=== PATIENT | male | born 1965 | race Caucasian/White ===

== ENCOUNTER 2018-05-27 15:16 | Inpatient (IN) ==
[2018-05-27 15:59] LABS: Basophils % 0.3 % (0.1-2.0); Eosinophils # 0.1 K/mm3 (0.0-0.4); Eosinophils % 1.8 % (0.1-12.0); Hematocrit 51.5 % (42.0-52.0); Hemoglobin 16.2 g/dL (14.1-18.0); Lymphocytes # 2.6 K/mm3 (0.7-4.5); Lymphocytes % 33.9 K/mm3 (10-50); Mean Corpuscular HGB Conc 31.5 g/dL (31.8-35.4); Mean Corpuscular Hemoglobin 29.1 pg (27.0-31.2); Mean Corpuscular Volume 92.5 fl (80-94); Mean Platelet Volume 8.5 fl (7.4-10.4); Monocytes # 0.5 K/mm3 (0.1-1.0); Monocytes % 7.1 % (1.7-9.3); Neutrophils # 4.3 K/mm3 (1.8-7.8); Neutrophils % 56.8 % (37.0-80.0); Platelet Count 246 K/mm3 (142-424); Red Blood Count 5.57 M/mm3 (4.60-6.20); Red Cell Distribution Width 14.9 % (11.5-17.5); White Blood Count 7.6 K/mm3 (4.8-10.8)
[2018-05-27 16:10] LABS: Albumin Level 3.9 gm/dL (3.4-5.0); Albumin/Globulin Ratio 0.9 (1.1-1.8); Anion Gap 9.1 mEq/L (5-15); Bilirubin,Total 0.4 mg/dL (0.2-1.0); Calcium 8.7 mg/dL (8.5-10.1); Globulin 4.2 gm/dl (1.3-3.2); Total Protein,Serum 8.1 gm/dL (6.4-8.2)
--- NOTE | 2018-05-27 16:12 | Emergency Department Note ---
ED Disposition Clinical Impression: Diverticulitis, Gallstones Disposition: Admitted As Inpatient Condition on Discharge: Fair Additional Instructions: Admitted to Dr. Yeboah for IV Levaquin and IV Flagyl Referrals: Gina Crockett [Primary Care Provider] - Time of Disposition: 20:51 - Critical Care Critical Care Time: No Attestation: On 05/27/18, the high probability of a clinically significant, sudden or life threatening deterioration of the following system(s) required my full and direct attention, intervention and personal management. The time I documented below is in addition to time spent performing reported procedures but includes the following listed in this critical care notation. Medical Decision Making - Medical Records Medical records reviewed: Yes: I reviewed the patient's medical records. - Sd Inquiry Pt receiving controlled substance: Yes Sd was queried for this patient: No Reason not queried -: Emergent pt cond-no time Risks and benefits of using a controlled substance: were discussed with pt by me Vital Signs: 05/27/18 15:28 05/27/18 15:51 05/27/18 17:46 Temperature 98.0 F 98.4 F 98.2 F Temperature Source Temporal Artery Scan Oral Oral Pulse Rate [Right Radial] 67 72 73 Respiratory Rate 20 20 18 Blood Pressure [Right Arm] 170/100 168/108 152/109 Blood Pressure Mean [Right Arm] 123 128 123 Blood Pressure Source [Right Arm] Automatic Cuff Automatic Cuff Automatic Cuff Blood Pressure Position [Right Arm] Sitting Supine Supine 02 Sat by Pulse Oximetry 97 97 96 Oxygen Delivery Method Room Air Room Air Room Air - Lab Data Lab results reviewed: Yes: I reviewed the patient's lab results. Lab Results 05/27/18 15:50: WBC 7.6, RBC 5.57, Hgb 16.2, Hct 51.5, MCV 92.5, MCH 29.1, MCHC 31.5 L, RDW 14.9, Plt Count 246, MPV 8.5, Neut % (Auto) 56.8, Lymph % (Auto) 33.9, [place] % (Auto) 7.1, Eos % (Auto) 1.8, Baso % (Auto) 0.3, Neut # (Auto) 4.3 , Lymph # (Auto) 2.6, [place] # (Auto) 0.5, Eos # (Auto) 0.1, Baso # (Auto) 0.0 05/27/18 15:50: Sodium 138, Potassium 4.1, Chloride 106, Carbon Dioxide 27, Anion Gap 9.1, BUN 11, Creatinine 0.91, Estimated Creat Clear 105, Estimated GFR 88, Est GFR ( Amer) 107, Glucose 113 H, Calcium 8.7, Total Bilirubin 0.4, AST 59 H, ALT 85 H, Alkaline Phosphatase 83, Total Protein 8.1, Albumin 3.9 , Globulin 4.2 H, Albumin/Globulin Ratio 0.9 L, Amylase 79, Lipase 159 05/27/18 17:30: Urine Color Yellow, Urine Appearance Clear, Urine pH 7.5, Ur Specific [place] 1.020, Urine Protein Negative, Urine Glucose (UA) Negative, Urine Ketones Negative, Urine Blood Negative, Urine Nitrate Negative, Urine Bilirubin Negative, Urine Urobilinogen 0.2, Ur Leukocyte Esterase Negative, Urine RBC None, Urine WBC None, Ur Squamous Epith Cells None, Urine Bacteria Trace Result diagrams: 05/27/18 15:50 05/27/18 15:50 Orders (Tests/Meds): ED MEDICATIONS Discontinued Medications Generic Name Dose Route Start Last Admin Trade Name Freq PRN Reason Stop Dose Admin Diatrizoate Meglum/Diatrizoate Sod 30 ml 05/27/18 18:17 05/27/18 18:28 Gastrografin 66%-10% 30ml PO 05/27/18 18:18 30 ml ONCE ONE Administration Diphenhydramine HCl 25 mg 05/27/18 18:16 05/27/18 18:28 Benadryl 50mg/1ml Vial IV 05/27/18 18:17 25 mg ONCE ONE Administration Iopamidol 75 ml 05/27/18 20:11 05/27/18 20:11 [id number]; 75ml Vial IV 05/27/18 20:12 75 ml ONCE ONE Administration Morphine Sulfate 4 mg 05/27/18 17:47 05/27/18 17:58 Morphine 4mg/Ml Syringe IV 05/27/18 17:48 4 mg ONCE ONE Administration Ondansetron HCl 4 mg 05/27/18 17:47 05/27/18 17:58 Zofran 4mg/2ml Vial IV 05/27/18 17:48 4 mg ONCE ONE Administration Sodium Chloride 10 ml 05/27/18 20:11 05/27/18 20:11 Rad-Saline Flush 10ml Syringe IV 05/27/18 20:12 10 ml ONCE ONE Administration ORDERS Category Date Time Status CT abdomen pelvis w con Stat Cat Scan 05/27/18 19:21 Taken Diarrhea Panel, PCR Stat Lab 05/27/18 16:15 Ordered - CT Data CT Scan: Abdomen, Pelvis Time Received: 20:[address] Reviewed: Yes: I have reviewed the patient's CT results, I discussed the CT results w/the radiologist, I have viewed the radiologist's interpretation Findings Narrative: Acute Diverticulitis and Cholelithiasis Abdominal Pain HPI - General Chief Complaint: Abdominal Pain Stated Complaint: abd pain Time Seen by Provider: 05/27/18 16:09 Mode of Arrival: Family Vehicle Source of Information: Patient Limitations: No Limitations Description of Symptoms (Recalled from ER Triage Doc. by RN): C/O C/O LOWER ABDOMINAL PAIN FOR 4 DAYS WITH NAUSEA AND DIARRHEA, HX DIVERTICULITIS - History of Present Illness HPI narrative: Lower abd pain for the past 4 days. History of Diverticulitis in past but no surgeries of anykind. Nausea, vomiting and had a loose BM this morning MD complaint: abdominal pain Onset (ago): day(s) Location: LLQ, suprapubic Severity: moderate - Related Data Home Medications Medication Instructions Recorded Confirmed Meclizine HCl [Meclizine 12.5mg 12.5 mg PO DAILY 05/27/18 05/27/18 Tab] Allergies Allergy/AdvReac Type Severity Reaction Status Date / Time iodine [IODINE] Allergy Intermediate I-RASH Verified 05/27/18 15:32 promethazine [From PHENERGAN] Allergy Mild NA-HALLUCIN Verified 05/27/18 15:32 ATIONS [facility] History I have reviewed the patient's past medical history: Yes Medical History: Denies:: Cancer, Diabetes Mellitus Type 1, Diabetes Mellitus Type 2, MRSA Amputation: No Fractures: No - Social History Smoking Status: Current every day smoker Tobacco Type: cigarettes Alcohol Intake: current Alcohol Intake Frequency:: a few times a week - Psychiatric History Expresses thoughts of harming self/others: None Suicide Plan Description: No Plan ROS Obtained: Yes All systems reviewed & no additional complaints - Constitutional Constitutional: Reports system reviewed and no additional complaints, except as docu - Eyes Eyes: Reports system reviewed and no additional complaints, except as docu - Gastrointestinal Gastrointestingal: Reports: system reviewed and no additional complaints, except as docu, as per HPI Physical Exam - General General appearance: alert, in no apparent distress (but does complain of some lower abd pain) - Head Head exam: atraumatic - Eye Eye exam: Present: normal appearance - ENT ENT exam: Present: normal exam - Respiratory Respiratory exam: Present: normal lung sounds bilaterally, respiratory distress - Cardiovascular Cardiovascular exam: Present: regular rate, normal rhythm - Abdominal Exam Abdominal exam: Present: tenderness (in suprapubic area) Abdominal tenderness: Present: suprapubic - Extremities Exam Extremities exam: Present: normal inspection - Back Exam Back exam: Present: normal inspection - Neurological Exam Neurological exam: Present: alert, oriented X3
[2018-05-27 16:14] LABS: Potassium 4.1 mmoL/L (3.5-5.1)
[2018-05-27 17:37] LABS: Microscopic, Urine URINE MICROSCOPIC (MICROSCOPIC)
[2018-05-27 17:39] LABS: Appearance,Urine CLEAR (Clear); Bilirubin,Urine Negative (Negative); Blood, Urine Negative (Negative); Color,Urine YELLOW (Yellow); Glucose,Urine (UA) Negative (Negative); Ketones,Urine Negative (Negative); Leukocyte Esterase,Urine Negative (Negative); PH,Urine 7.5 (5.0-8.5); Protein,Urine Negative (Negative); Urobilinogen,Urine 0.2 EU/dl (0.2)
[2018-05-27 17:53] LABS: Bacteria,Urine Trace /lpf
[2018-05-28 06:42] LABS: Basophils % 0.7 % (0.1-2.0); Eosinophils # 0.1 K/mm3 (0.0-0.4); Eosinophils % 2.1 % (0.1-12.0); Hematocrit 48.7 % (42.0-52.0); Hemoglobin 15.2 g/dL (14.1-18.0); Lymphocytes # 1.9 K/mm3 (0.7-4.5); Lymphocytes % 41.2 K/mm3 (10-50); Mean Corpuscular HGB Conc 31.1 g/dL (31.8-35.4); Mean Corpuscular Volume 93.3 fl (80-94); Mean Platelet Volume 8.6 fl (7.4-10.4); Monocytes # 0.4 K/mm3 (0.1-1.0); Monocytes % 9.3 % (1.7-9.3); Neutrophils # 2.2 K/mm3 (1.8-7.8); Neutrophils % 46.7 % (37.0-80.0); Platelet Count 205 K/mm3 (142-424); Red Blood Count 5.22 M/mm3 (4.60-6.20); Red Cell Distribution Width 14.9 % (11.5-17.5); White Blood Count 4.6 K/mm3 (4.8-10.8)
[2018-05-28 06:52] LABS: Albumin Level 3.2 gm/dL (3.4-5.0); Albumin/Globulin Ratio 0.9 (1.1-1.8); Anion Gap 8.3 mEq/L (5-15); Bilirubin,Total 0.5 mg/dL (0.2-1.0); Calcium 8.3 mg/dL (8.5-10.1); Globulin 3.7 gm/dl (1.3-3.2); Potassium 4.3 mmoL/L (3.5-5.1); Total Protein,Serum 6.9 gm/dL (6.4-8.2)
--- NOTE | 2018-05-28 08:37 | History & Physical Report ---
*Admission Date: 05/27/18 <Elaine Farias 05/28/18 08:41> *Chief complaint: abdominal pain, nausea, vomiting <Elaine Farias 05/28/18 08:41> *History of present illness: Mr. Blankenship is a 52-year-old male patient of Dr. Almonte. He states for the past 10-15 years he has had numerous episodes of diverticulitis. Approximately 4-5 days ago he began having cramping in his lower abdomen. He then began having nausea vomiting and diarrhea which is why he presented to the emergency room. He was found to have both diverticulitis and gallstones and was admitted for antibiotics and further evaluation and treatment. At this time he is feeling much better after receiving some antibiotics. His vomiting has resolved. <Elaine Farias 05/28/18 08:41> [facility] History Medical History: Reports:: Hypertension, MRSA Denies:: Cancer, Diabetes Mellitus Type 1, Diabetes Mellitus Type 2, Internal Pacemaker <Elaine Farias 05/28/18 08:41> Comment: Diverticulitis <Elaine Farias 05/28/18 08:41> Other Surgeries: Yes: Colonoscopy. No: Pacemaker <Elaine Farias 05/28/18 08 :41> Amputation: No <Elaine Farias 05/28/18 08:41> Fractures: No <Elaine Farias 05/28/18 08:41> - *Social History Educational Level: Completed GED/General Educational Development <Elaine Farias 05/28/18 08:41> Smoking Status: Current every day smoker <Elaine Farias 05/28/18 08:41> Tobacco Type: cigarettes <Elaine Farias 05/28/18 08:41> # Packs/Day (cigarettes): 1 <Elaine Farias 05/28/18 08:41> Alcohol Intake: never <Elaine Farias 05/28/18 08:41> Alcohol Intake Frequency:: a few times a week <Elaine Farias 05/28/18 08:41> Substance Use Type: marijuana <Elaine Farias 05/28/18 08:41> Last Used Substance: days (ago) <Elaine Farias 05/28/18 08:41> Occupational Status: unemployed <RemikikeElaine 05/28/18 08:41> Housing: house <RemikikeElaine 05/28/18 08:41> Household Members: none <JarrettElaine 05/28/18 08:41> - Psychiatric History Expresses thoughts of harming self/others: None <JarrettElaine 05/28/18 08: 41> Suicide Plan Description: No Plan <JarrettElaine 05/28/18 08:41> *Family Hx:: Cancer, Hyperlipidemia, Hypertension <JarrettElaine 05/28/18 08 :41> Review of Systems - Constitutional Reports weakness, Denies fever(s) <Elaine Farias 05/28/18 08:41> - Eyes Denies blurry vision, Denies double vision <JarrettElaine 05/28/18 08:41> - ENT Reports sore throat, Denies nasal congestion <Elaine Farias 05/28/18 08:41> - *Cardiovascular Denies chest pain, Denies shortness of breath <JarrettElaine 05/28/18 08:41> - *Respiratory Denies cough, Denies shortness of breath <JarrettElaine 05/28/18 08:41> - *Gastrointestinal Reports abdominal pain (lower abdomen), Reports loose stools, Reports nausea, Reports vomiting <JarrettElaine 05/28/18 08:41> - *Genitourinary Denies difficulty urinating, Denies painful urination <Elaine Farias 08:41> - *Musculoskeletal Reports joint pain (right shoulder) <JarrettElaine 05/28/18 08:41> - *Neurologic Reports headache(s), Denies dizziness <Arsh Fariasa 05/28/18 08:41> Meds Home Medications Medication Instructions Recorded Confirmed Type No Known Home Medications 05/28/18 05/28/18 History <Gorge Yeboah - 05/28/18 09:09> Allergies Allergy/AdvReac Type Severity Reaction Status Date / Time iodine [IODINE] Allergy Intermediate I-RASH Verified 05/27/18 15:32 promethazine [From PHENERGAN] Allergy Mild NA-HALLUCIN Verified 05/27/18 15:32 ATIONS <Gorge Yeboah - 05/28/18 09:09> Exam Vital signs and Labs for Last 24 Hours: Temp Pulse Resp BP Pulse Ox 98.1 F 63 18 163/99 97 05/28/18 08:00 05/28/18 08:00 05/28/18 08:00 05/28/18 08:00 05/28/18 08:00 Laboratory Results - last 24 hr 05/27/18 15:50: WBC 7.6, RBC 5.57, Hgb 16.2, Hct 51.5, MCV 92.5, MCH 29.1, MCHC 31.5 L, RDW 14.9, Plt Count 246, MPV 8.5, Neut % (Auto) 56.8, Lymph % (Auto) 33.9, [place] % (Auto) 7.1, Eos % (Auto) 1.8, Baso % (Auto) 0.3, Neut # (Auto) 4.3 , Lymph # (Auto) 2.6, [place] # (Auto) 0.5, Eos # (Auto) 0.1, Baso # (Auto) 0.0 05/27/18 15:50: Sodium 138, Potassium 4.1, Chloride 106, Carbon Dioxide 27, Anion Gap 9.1, BUN 11, Creatinine 0.91, Estimated Creat Clear 105, Estimated GFR 88, Est GFR ( Amer) 107, Glucose 113 H, Calcium 8.7, Total Bilirubin 0.4, AST 59 H, ALT 85 H, Alkaline Phosphatase 83, Total Protein 8.1, Albumin 3.9 , Globulin 4.2 H, Albumin/Globulin Ratio 0.9 L, Amylase 79, Lipase 159 05/27/18 17:30: Urine Color Yellow, Urine Appearance Clear, Urine pH 7.5, Ur Specific [place] 1.020, Urine Protein Negative, Urine Glucose (UA) Negative, Urine Ketones Negative, Urine Blood Negative, Urine Nitrate Negative, Urine Bilirubin Negative, Urine Urobilinogen 0.2, Ur Leukocyte Esterase Negative, Urine RBC None, Urine WBC None, Ur Squamous Epith Cells None, Urine Bacteria Trace 05/28/18 04:45: Stl Aeromonas (PCR) Not detected, Stl C. cayetanensis PCR Not detected, Stool Rotavirus (PCR) Not detected, Stl Adenov F 40/41 PCR Not detected, Stool Astrovirus (PCR) Not detected, Stool Campylobacter PCR Not detected, Stl C.difficile Tox PCR Detected A, Stool Cryptosporidium PCR Not detected, Stl E.coli Shiga Tox PCR Not detected, Stool E coli O157 PCR Not detected, Stl Enterotoxigenic E PCR Not detected, Stool EPEC (PCR) Not detected , Stool EAEC (PCR) Not detected, Stl E. histolytica PCR Not detected, Stool Giardia Lamblia PCR Not detected, Stool Salmonella PCR Not detected, Stool Sapovirus (PCR) Not detected, Stl P. shigelloides PCR Not detected, Stl Shigella /EIEC PCR Not detected, St Y.enterocolitica PCR Not detected, Stool Vibrio (PCR ) Not detected, Stl Vibrio cholerae PCR Not detected, Stl Norovirus GI/GII PCR Not detected 05/28/18 06:11: WBC 4.6 L D, RBC 5.22, Hgb 15.2, Hct 48.7, MCV 93.3, MCH 29.0, MCHC 31.1 L, RDW 14.9, Plt Count 205, MPV 8.6, Neut % (Auto) 46.7, Lymph % (Auto ) 41.2, [place] % (Auto) 9.3, Eos % (Auto) 2.1, Baso % (Auto) 0.7, Neut # (Auto) 2.2, Lymph # (Auto) 1.9, [place] # (Auto) 0.4, Eos # (Auto) 0.1, Baso # (Auto) 0.0 05/28/18 06:11: Sodium 140, Potassium 4.3, Chloride 107, Carbon Dioxide 29, Anion Gap 8.3, BUN 8 D, Creatinine 0.97, Estimated Creat Clear 111, Estimated GFR 82, Est GFR ( Amer) 99, Glucose 99, Calcium 8.3 L, Total Bilirubin 0.5, AST 48 H, ALT 73, Alkaline Phosphatase 75, Total Protein 6.9, Albumin 3.2 L D, Globulin 3.7 H, Albumin/Globulin Ratio 0.9 L <Gorge Yeboah - 05/28/18 09:09> Temp Pulse Resp BP Pulse Ox 98.1 F 63 18 163/99 97 05/28/18 08:00 05/28/18 08:00 05/28/18 08:00 05/28/18 08:00 05/28/18 08:00 Laboratory Results - last 24 hr 05/27/18 15:50: WBC 7.6, RBC 5.57, Hgb 16.2, Hct 51.5, MCV 92.5, MCH 29.1, MCHC 31.5 L, RDW 14.9, Plt Count 246, MPV 8.5, Neut % (Auto) 56.8, Lymph % (Auto) 33.9, [place] % (Auto) 7.1, Eos % (Auto) 1.8, Baso % (Auto) 0.3, Neut # (Auto) 4.3 , Lymph # (Auto) 2.6, [place] # (Auto) 0.5, Eos # (Auto) 0.1, Baso # (Auto) 0.0 05/27/18 15:50: Sodium 138, Potassium 4.1, Chloride 106, Carbon Dioxide 27, Anion Gap 9.1, BUN 11, Creatinine 0.91, Estimated Creat Clear 105, Estimated GFR 88, Est GFR ( Amer) 107, Glucose 113 H, Calcium 8.7, Total Bilirubin 0.4, AST 59 H, ALT 85 H, Alkaline Phosphatase 83, Total Protein 8.1, Albumin 3.9 , Globulin 4.2 H, Albumin/Globulin Ratio 0.9 L, Amylase 79, Lipase 159 05/27/18 17:30: Urine Color Yellow, Urine Appearance Clear, Urine pH 7.5, Ur Specific [place] 1.020, Urine Protein Negative, Urine Glucose (UA) Negative, Urine Ketones Negative, Urine Blood Negative, Urine Nitrate Negative, Urine Bilirubin Negative, Urine Urobilinogen 0.2, Ur Leukocyte Esterase Negative, Urine RBC None, Urine WBC None, Ur Squamous Epith Cells None, Urine Bacteria Trace 05/28/18 04:45: Stl Aeromonas (PCR) Not detected, Stl C. cayetanensis PCR Not detected, Stool Rotavirus (PCR) Not detected, Stl Adenov F 40/41 PCR Not detected, Stool Astrovirus (PCR) Not detected, Stool Campylobacter PCR Not detected, Stl C.difficile Tox PCR Detected A, Stool Cryptosporidium PCR Not detected, Stl E.coli Shiga Tox PCR Not detected, Stool E coli O157 PCR Not detected, Stl Enterotoxigenic E PCR Not detected, Stool EPEC (PCR) Not detected , Stool EAEC (PCR) Not detected, Stl E. histolytica PCR Not detected, Stool Giardia Lamblia PCR Not detected, Stool Salmonella PCR Not detected, Stool Sapovirus (PCR) Not detected, Stl P. shigelloides PCR Not detected, Stl Shigella /EIEC PCR Not detected, St Y.enterocolitica PCR Not detected, Stool Vibrio (PCR ) Not detected, Stl Vibrio cholerae PCR Not detected, Stl Norovirus GI/GII PCR Not detected 05/28/18 06:11: WBC 4.6 L D, RBC 5.22, Hgb 15.2, Hct 48.7, MCV 93.3, MCH 29.0, MCHC 31.1 L, RDW 14.9, Plt Count 205, MPV 8.6, Neut % (Auto) 46.7, Lymph % (Auto ) 41.2, [place] % (Auto) 9.3, Eos % (Auto) 2.1, Baso % (Auto) 0.7, Neut # (Auto) 2.2, Lymph # (Auto) 1.9, [place] # (Auto) 0.4, Eos # (Auto) 0.1, Baso # (Auto) 0.0 05/28/18 06:11: Sodium 140, Potassium 4.3, Chloride 107, Carbon Dioxide 29, Anion Gap 8.3, BUN 8 D, Creatinine 0.97, Estimated Creat Clear 111, Estimated GFR 82, Est GFR ( Amer) 99, Glucose 99, Calcium 8.3 L, Total Bilirubin 0.5, AST 48 H, ALT 73, Alkaline Phosphatase 75, Total Protein 6.9, Albumin 3.2 L D, Globulin 3.7 H, Albumin/Globulin Ratio 0.9 L <Elaine Farias - 05/28/18 08:41> I & O for Last 24 hours: Intake & Output 05/25/18 05/26/18 05/27/18 05/28/18 11:59 11:59 11:59 11:59 Intake Total 894 / 894 Output Total 500 / 500 Balance 394 / 394 Weight 192 lb 3 oz <LettsGorge - 05/28/18 09:09> Intake & Output 05/25/18 05/26/18 05/27/18 05/28/18 11:59 11:59 11:59 11:59 Intake Total 894 / 894 Output Total 500 / 500 Balance 394 / 394 Weight 192 lb 3 oz <Elaine Farias 05/28/18 08:41> - Constitutional no acute distress [facility] 08[facility]> - *Routine HEENT Exam Head: Present: normocephalic, atraumatic <[facility] 05/28/18 08:41> Eye: Present: EOMI, PERRL <[facility] 05/28/18 08:41> ENT: Present: mucous membranes moist <[facility] 05/28/18 08:41> - *Routine Neck Exam Present: supple, full ROM <[facility] 05/28/18 08:41> - *Routine Respiratory Exam Present: CTA bilaterally [facility] 05/28/18 08:41> - *Routine Cardiovascular Exam Present: RRR <[facility] 05/28/18 08:41> - *Routine Abdominal Exam Present: soft, normoactive bowel sounds, tenderness (lower abdomen). Absent: distended <[facility] 05/28/18 08:41> - *Routine Extremities Exam Absent: edema [facility] 05/28/18 08:41> - *Routine Skin Exam Present: intact [facility] 05/28/18 08:41> - *Routine Neurological Exam Present: alert, oriented X3 <[facility] 05/28/18 08:41> H&P: Result - Labs Labs: Short CBC 05/27/18 05/28/18 Range/Units 15:50 06:11 WBC 7.6 4.6 L D (4.8-10.8) K/mm3 Hgb 16.2 15.2 (14.1-18.0) g/dL Hct 51.5 48.7 (42.0-52.0) % Plt Count 246 205 (142-424) K/mm3 BMP 05/27/18 05/28/18 15:50 06:11 Sodium 138 140 Potassium 4.1 4.3 Chloride 106 107 Carbon Dioxide 27 29 BUN 11 8 D Creatinine 0.91 0.97 Glucose 113 H 99 Calcium 8.7 8.3 L Liver Function 05/27/18 05/28/18 Range/Units 15:50 06:11 Total Bilirubin 0.4 0.5 (0.2-1.0) mg/dL AST 59 H 48 H (15-37) U/L ALT 85 H 73 (12-78) U/L Alkaline Phosphatase 83 75 (46-116) U/L Albumin 3.9 3.2 L D (3.4-5.0) gm/dL Urine 05/27/18 Range/Units 17:30 Urine Color Yellow (Yellow) Urine Appearance Clear (Clear) Urine pH 7.5 (5.0-8.5) Ur Specific [place] 1.020 (1.005-1.030) Urine Protein Negative (Negative) Urine Glucose (UA) Negative (Negative) <Gorge Yeboah - 05/28/18 09:09> <Elaine Farias - 05/28/18 08:41> - Impressions CT abdomen - 1. Cholelithiasis. The gallbladder is filled with stones 2. Diverticulosis with suspected mild diverticulitis of the sigmoid colon. 3. There appears to be focal thickening of the superior wall the urinary bladder with a few small gas bubbles in this area. Necrotic neoplasm is a consideration. Cystitis is also considered. It is also possible that this could be coming from the sigmoid colon with a small. Diverticular abscess. Suggest repeat exam with IV and oral contrast for better evaluation. 4. Celiac and portal adenopathy. Etiology indeterminate CT of abdomen with contrast 1. Diverticulitis of the sigmoid colon with possible small diverticular abscess millimeters versus an adjacent lesion of the urinary bladder with thickening of the urinary bladder wall superiorly. 2. Cholelithiasis. 3. Portal adenopathy <Elaine Farias - 05/28/18 08:41> Assessment and Plan (1) Diverticulitis Current visit: Yes Status: Acute Category: Medical Code(s): K57.92 - Diverticulitis of intestine, part unspecified, without perforation or abscess without bleeding (2) Gallstones Current visit: Yes Status: Acute Category: Medical Code(s): K80.20 - Calculus of gallbladder without cholecystitis without obstruction <Gorge Yeboah - 05/28/18 09:09> (1) Diverticulitis Current visit: Yes Status: Acute Category: Medical Code(s): K57.92 - Diverticulitis of intestine, part unspecified, without perforation or abscess without bleeding (2) Gallstones Current visit: Yes Status: Acute Category: Medical Code(s): K80.20 - Calculus of gallbladder without cholecystitis without obstruction <Elaine Farias - 05/28/18 08:33> - Assessment and plan all Dx Assessment and Plan for all problems:: Saw patient, agree with above note. Patient has improved since admission, will not consult surgery at this time. <Gorge Yeboah - 05/28/18 09:09> Patient is improving on antibiotics. CT with contrast is concerning for diverticular abscess. The patient also has gallstones. He has never had a right upper quadrant ultrasound. May need GI or surgery consult. Will discuss further care with Dr. Yeboah. <Elaine Farias - 05/28/18 08:41>
--- NOTE | 2018-05-28 10:36 | Pharmacy Consult Notes ---
[facility] Pharmacy VTE Monitoring - Patient Demographics Admission date: 05/27/18 Report Date: 05/28/18 Time: 10:36 Allergies/Adverse Reactions: Patient Allergies iodine [IODINE] Allergy (Intermediate, Verified 05/27/18 15:32) I-RASH promethazine [From PHENERGAN] Allergy (Mild, Verified 05/27/18 15:32) NA-HALLUCINATIONS Height: 1.8 m Weight: 87.175 kg Patient Problems: Current Active Problems Diverticulitis (Acute) Gallstones (Acute) - VTE Risk Labs: VTE Related Lab Results Hgb 15.2 g/dL (14.1-18.0) 05/28/18 06:11 Hct 48.7 % (42.0-52.0) 05/28/18 06:11 Plt Count 205 K/mm3 (142-424) 05/28/18 06:11 BUN 8 mg/dL (7-18) D 05/28/18 06:11 Creatinine 0.97 mg/dL (0.70-1.30) 05/28/18 06:11 Estimated Creat Clear 111 mL/min (0-300) 05/28/18 06:11 VTE Score: 3 VTE Risk Level: Low Risk - Prophylaxis VTE Prophylaxis Ordered?: Yes Types of VTE Prophylaxis: TEDS Knee High Location of Applied Device: Bilateral Lower Extremeties - VTE Diagnosis Confirmed Treatment or plan recommended: Continue Current Treatment
[2018-05-29 04:30] LABS: Basophils % 0.3 % (0.1-2.0); Eosinophils # 0.1 K/mm3 (0.0-0.4); Eosinophils % 1.4 % (0.1-12.0); Hematocrit 46.9 % (42.0-52.0); Hemoglobin 15.5 g/dL (14.1-18.0); Lymphocytes # 1.9 K/mm3 (0.7-4.5); Lymphocytes % 39.5 K/mm3 (10-50); Mean Corpuscular HGB Conc 33.1 g/dL (31.8-35.4); Mean Corpuscular Hemoglobin 30.5 pg (27.0-31.2); Mean Corpuscular Volume 92.3 fl (80-94); Mean Platelet Volume 8.3 fl (7.4-10.4); Monocytes # 0.4 K/mm3 (0.1-1.0); Monocytes % 8.9 % (1.7-9.3); Neutrophils # 2.4 K/mm3 (1.8-7.8); Neutrophils % 49.8 % (37.0-80.0); Platelet Count 185 K/mm3 (142-424); Red Blood Count 5.08 M/mm3 (4.60-6.20); Red Cell Distribution Width 14.7 % (11.5-17.5); White Blood Count 4.8 K/mm3 (4.8-10.8)
[2018-05-29 04:45] LABS: Anion Gap 6.4 mEq/L (5-15); Calcium 8.6 mg/dL (8.5-10.1); Potassium 4.4 mmoL/L (3.5-5.1)
--- NOTE | 2018-05-29 09:50 | Discharge Summary ---
General - General Admission date:: 05/27/18 Discharge date: 05/29/18 HPI HPI: Mr. Blankenship is a 52-year-old male patient of Dr. Almonte. He states for the past 10-15 years he has had numerous episodes of diverticulitis. Approximately 4-5 days ago he began having cramping in his lower abdomen. He then began having nausea vomiting and diarrhea which is why he presented to the emergency room. He was found to have both diverticulitis and gallstones and was admitted for antibiotics and further evaluation and treatment. At this time he is feeling much better after receiving some antibiotics. His vomiting has resolved. Hospital Course Hospital Course: Patient was admitted to our facility for his diverticulitis. He was started on levaquin and flagyl. His CT scan confirmed diverticulitis with possible abscess. However, patient was feeling better with antibiotics on day 2 of hospital stay. His stool culture during this visit was positive for c.difficle, which was treated with flagyl. Upon being stable on day 3, patient was discharged home with levaquin and flagyl for total of 14 days. He is to follow- up with me in 1 week as he wants to switch his care from [facility]. Objective Vital signs: Temp Pulse Resp BP Pulse Ox 98.2 F 56 L 18 155/96 99 05/29/18 07:58 05/29/18 07:58 05/29/18 07:58 05/29/18 07:58 05/29/18 08:00 no acute distress - *Routine HEENT Exam Head: Present: normocephalic - *Routine Neck Exam Present: supple, full ROM - Routine Chest/Breast/Axilla Exam Chest wall: Absent: tenderness - *Routine Respiratory Exam Present: CTA bilaterally. Absent: accessory muscle use - *Routine Cardiovascular Exam Present: RRR - *Routine Abdominal Exam Present: soft, normoactive bowel sounds. Absent: tenderness - *Routine Extremities Exam Absent: edema Results Labs on day of discharge: Labs from last 24 hours 05/29/18 05/29/18 04:18 04:18 WBC 4.8 RBC 5.08 Hgb 15.5 Hct 46.9 MCV 92.3 MCH 30.5 MCHC 33.1 RDW 14.7 Plt Count 185 MPV 8.3 Neut % (Auto) 49.8 Lymph % (Auto) 39.5 [place] % (Auto) 8.9 Eos % (Auto) 1.4 Baso % (Auto) 0.3 Neut # (Auto) 2.4 Lymph # (Auto) 1.9 Bailey # (Auto) 0.4 Eos # (Auto) 0.1 Baso # (Auto) 0.0 Sodium 140 Potassium 4.4 Chloride 109 H Carbon Dioxide 29 Anion Gap 6.4 BUN 6 L Creatinine 0.89 Estimated Creat Clear 122 Estimated GFR 90 Est GFR ( Amer) 109 Glucose 89 Calcium 8.6 - Imaging and Cardiology CT scan - abdomen Status: final report Additional comments: IMPRESSION: 1. Diverticulitis of the sigmoid colon with possible small. Diverticular abscess millimeters versus an adjacent lesion of the urinary bladder with thickening of the urinary bladder wall superiorly. 2. Cholelithiasis. 3. Portal adenopathy DS: Diagnosis - Discharge Diagnosis (1) Diverticulitis Start date: 05/27/18 Status: Acute Problem details: Discharged with PO abx and zofran (2) Gallstones Start date: 05/27/18 Status: Acute Problem details: Asymptomatic at this time Discharge Plan - Patient Discharge Instructions ACTIVITY: Continue current activity DIET: continue same diet Patient Instructions: Antibiotic-associated Colitis -- C difficile - Follow up Plan Follow up with: Trini Espana MD [Staff Physician] - 1 week Disposition: Home, Self-Care Prescriptions/Medication Reconciliation: New Nicotine [Nicoderm 21mg/24hr patch] 21 mg TD DAILYP PRN #30 patch.td24 PRN Reason: Nicotine Cravings Ondansetron HCl [Zofran 4mg Tab] 4 mg PO NEEDED PRN #21 tab PRN Reason: Nausea metroNIDAZOLE [Flagyl] 500 mg PO TID #36 tab levoFLOXacin [Levaquin 500mg tab] 500 mg PO DAILY #11 tab
[2018-06-08 16:06] VITALS: BP 156/87
== END 2018-05-29 10:23 | disposition home or self-care (01) ==
LOC: ER 15:16 → 2ND 21:04
PROVIDERS: ADMIT Family Medicine; ATTEND Family Medicine

== ENCOUNTER 2019-02-24 11:46 | Observation (INO) ==
--- NOTE | 2019-02-24 12:05 | Emergency Department Note ---
ED Disposition Clinical Impression: Diverticulitis Disposition: Admitted as Observation Condition on Discharge: Fair Time of Disposition: 13:53 - Critical Care Critical Care Time: No Attestation: On , the high probability of a clinically significant, sudden or life threatening deterioration of the following system(s) required my full and direct attention, intervention and personal management. The time I documented below is in addition to time spent performing reported procedures but includes the fol lowing listed in this critical care notation. Medical Decision Making - Medical Records Medical records reviewed: Yes: I reviewed the patient's medical records. - Sd Inquiry Pt receiving controlled substance: No Sd was queried for this patient: No Vital Signs: 02/24/19 11:52 02/24/19 12:43 02/24/19 13:30 Temperature 98.2 F Temperature Source Oral Pulse Rate Pulse Rate [Right] 62 52 L 61 Respiratory Rate 24 18 Blood Pressure Blood Pressure [Right Arm] 195/101 H 194/98 H 151/91 H Blood Pressure Mean [Right Arm] 132 130 111 Blood Pressure Source Blood Pressure Source [Right Arm] Automatic Cuff Automatic Cuff Automatic Cuff Blood Pressure Position Blood Pressure Position [Right Arm] Supine Sitting Supine 02 Sat by Pulse Oximetry 100 96 96 Oxygen Delivery Method Room Air Room Air 02/24/19 14:11 02/24/19 14:30 02/24/19 14:48 Temperature 97.9 F Temperature Source Oral Pulse Rate Pulse Rate [Right] 63 62 65 Respiratory Rate 16 18 Blood Pressure Blood Pressure [Right Arm] 146/87 H 145/90 H 163/98 H Blood Pressure Mean [Right Arm] 106 108 119 Blood Pressure Source Blood Pressure Source [Right Arm] Automatic Cuff Automatic Cuff Manual Cuff/ Auscultation Blood Pressure Position Blood Pressure Position [Right Arm] Sitting Supine Supine 02 Sat by Pulse Oximetry 96 97 97 Oxygen Delivery Method Room Air Room Air 02/24/19 15:00 02/24/19 15:03 Temperature 98.6 F 98.6 F Temperature Source Oral Oral Pulse Rate 65 Pulse Rate [Right] 65 Respiratory Rate 20 20 Blood Pressure 149/90 H Blood Pressure [Right Arm] 149/90 H Blood Pressure Mean [Right Arm] 109 Blood Pressure Source Automatic Cuff Blood Pressure Source [Right Arm] Automatic Cuff Blood Pressure Position Supine Blood Pressure Position [Right Arm] Supine 02 Sat by Pulse Oximetry 97 Oxygen Delivery Method Room Air Room Air - Lab Data Lab results reviewed: Yes: I reviewed the patient's lab results. Lab Results 02/24/19 11:53: WBC 14.9 H, RBC 5.39, Hgb 17.1, Hct 51.0, MCV 94.7 H, MCH 31.8 H , MCHC 33.5, RDW 13.9, Plt Count 333, MPV 8.0, Neut % (Auto) 84.5 H, Lymph % (Auto) 10.6, [place] % (Auto) 4.5, Eos % (Auto) 0.2, Baso % (Auto) 0.1, Neut # (Auto) 12.6 H, Lymph # (Auto) 1.6, [place] # (Auto) 0.7, Eos # (Auto) 0.0, Baso # (Auto) 0.0 02/24/19 11:53: Sodium 140, Potassium 3.7, Chloride 101, Carbon Dioxide 26, Anion Gap 16.7 H, BUN 14, Creatinine 1.00, Estimated Creat Clear 112, Estimated GFR 79, Est GFR ( Amer) 95, Glucose 101, Calcium 9.4, Total Bilirubin 0.6, AST 75 H, ALT 90 H, Alkaline Phosphatase 54, Total Protein 9.1 H, Albumin 4.5, Globulin 4.6 H, Albumin/Globulin Ratio 1.0 L 02/24/19 11:53: Lipase 123 Result diagrams: 02/24/19 11:53 02/24/19 11:53 Orders (Tests/Meds): ED MEDICATIONS Generic Name Dose Route Start Last Admin Trade Name Freq PRN Reason Stop Dose Admin Hydromorphone HCl 1 mg 02/24/19 15:02 02/24/19 19:02 Dilaudid 2mg/Ml Syringe IV 03/26/19 15:01 1 mg Q4HP PRN Administration Breakthru Moderate Pain Sodium Chloride 1,000 mls @ 200 mls/hr 02/24/19 15:02 02/24/19 15:47 Sod Chlor 0.9% 1000ml Bag IV 03/26/19 14:48 200 mls/hr .Q5H BERTIN Administration Levofloxacin/Dextrose 750 mg in 150 mls @ 100 mls/hr 02/25/19 11:00 Levofloxacin 750mg/150ml Premix IV 03/11/19 10:59 1100 BERTIN Protocol Metronidazole 500 mg in 100 mls @ 100 mls/hr 02/24/19 15:00 02/24/19 15:48 Flagyl 500mg/100ml Ivpb IV 03/10/19 14:59 100 mls/hr Q8H BERTIN Administration Protocol Ketorolac Tromethamine 30 mg 02/24/19 15:02 Toradol 30mg/Ml Vial IV 03/01/19 14:48 Q6HP PRN Moderate Pain Nicotine 21 mg 02/24/19 15:56 02/24/19 16:10 Nicoderm 21mg/24hr Patch TD 03/26/19 15:55 21 mg DAILYP PRN Administration Nicotine Cravings Ondansetron HCl 4 mg 02/24/19 15:02 Zofran 4mg/2ml Vial IV 03/26/19 14:48 Q8HP PRN Nausea Discontinued Medications Generic Name Dose Route Start Last Admin Trade Name Freq PRN Reason Stop Dose Admin Hydromorphone HCl 1 mg 02/24/19 12:06 02/24/19 12:07 Dilaudid 2mg/Ml Syringe IV 02/24/19 12:07 1 mg ONCE ONE Administration Sodium Chloride 1,000 mls @ 999 mls/hr 02/24/19 12:15 02/24/19 12:08 Sod Chlor 0.9% 1000ml Bag IV 02/24/19 13:15 999 mls/hr .Q1H1M BERTIN Administration Sodium Chloride 1,000 mls @ 200 mls/hr 02/24/19 14:49 02/24/19 15:58 Sod Chlor 0.9% 1000ml Bag IV 03/26/19 14:48 Not Given .Q5H BERTIN Levofloxacin/Dextrose 750 mg in 150 mls @ 100 mls/hr 02/24/19 15:00 02/24/19 14:57 Levofloxacin 750mg/150ml Premix IV 03/10/19 14:59 100 mls/hr 1100 BERTIN Administration Protocol Ketorolac Tromethamine 30 mg 02/24/19 14:49 Toradol 30mg/Ml Vial IV 03/01/19 14:48 Q6HP PRN Moderate Pain Ondansetron HCl 4 mg 02/24/19 12:06 02/24/19 12:07 Zofran 4mg/2ml Vial IV 02/24/19 12:07 4 mg ONCE ONE Administration Ondansetron HCl 4 mg 02/24/19 12:45 02/24/19 12:51 Zofran 4mg/2ml Vial IV 02/24/19 12:46 4 mg ONCE ONE Administration Ondansetron HCl 4 mg 02/24/19 14:49 Zofran 4mg/2ml Vial IV 03/26/19 14:48 Q8HP PRN Nausea ORDERS Category Date Time Status Basic Metabolic Panel AMLAB Lab 02/25/19 06:00 Ordered Complete Blood Count Auto Diff AMLAB Lab 02/25/19 06:00 Ordered General Adult HPI - General Stated complaint: abd pain Time Seen by Provider: 02/24/19 11:58 Mode of Arrival: Family Vehicle Source of Information: Patient Limitations: No Limitations - History of Present Illness HPI narrative: n/v and abdominal pain. Started in llq and suprapubic area. Similar symptoms two days ago evaluated and found to have sigmoid diverticulitis without perf - Related Data Home Medications Medication Instructions Recorded Confirmed Ciprofloxacin HCl [Ciprofloxacin 500 mg PO BID 02/24/19 02/24/19 500mg Tab] metroNIDAZOLE [Flagyl] 500 mg PO TID 02/24/19 02/24/19 Previous Rx's Medication Instructions Recorded Ondansetron [Zofran 4mg ODT] 4 mg PO TIDP PRN #10 tab.rapdis 02/20/19 Allergies Allergy/AdvReac Type Severity Reaction Status Date / Time iodine [IODINE] Allergy Intermediate I-RASH Verified 02/20/19 04:27 promethazine [From PHENERGAN] Allergy Mild NA-HALLUCIN Verified 02/20/19 04:27 ATIONS [facility] History - Hepatitis A Screen Attestation statement:: This patient has been screened for Hepatitis A risk factors. I have reviewed the patient's past medical history: Yes Medical History: Reports:: Hypertension, MRSA Denies:: Cancer, Diabetes Mellitus Type 1, Diabetes Mellitus Type 2, Internal Pacemaker Comment: Diverticulitis Other Surgeries: Yes: Colonoscopy. No: Pacemaker Amputation: No Fractures: No - Social History Smoking Status: Current every day smoker Tobacco Type: cigarettes # Packs/Day (cigarettes): 1 Alcohol Intake: current Alcohol Intake Frequency:: a few times a week Substance Use Type: marijuana Occupational Status: unemployed Housing: house Household Members: none Family Hx:: Cancer, Hyperlipidemia, Hypertension ROS Obtained: Yes All systems reviewed & no additional complaints - Constitutional Constitutional: Denies chills, Denies fever(s) - Eyes Eyes: Denies change in vision - ENT Ears, Nose, Mouth, and Throat: Denies throat swelling - Cardiovascular Cardiovascular: Denies chest pain, Denies chest pain at rest, Denies joan phoresis, Denies dyspnea - Respiratory Respiratory: No chest congestion, No cough, No dyspnea on exertion - Gastrointestinal Gastrointestingal: Reports: nausea, vomiting. Denies: abdominal pain, diarrhea - Musculoskeletal Musculoskeletal: Denies joint stiffness, Denies joint swelling, Denies limited range of motion - Integumentary/Breasts Skin/Breast: Denies rash - Neurologic Neurologic: Reports system reviewed and no additional complaints, except as docu, Denies headache(s) - Hematologic/Lymphatic Henatologic/Lymphatic: Denies easy bleeding, Denies easy bruising Physical Exam - General General appearance: alert, in distress, other (rocking and moaning ) - Head Head exam: atraumatic, normocephalic, normal inspection - Eye Eye exam: Present: normal appearance, PERRL, EOMI - ENT ENT exam: Present: normal exam, normal oropharynx, mucous membranes moist, TM's normal bilaterally, normal external ear exam - Neck Neck exam: Present: normal inspection - Chest Chest inspection: Present: normal inspection, symmetric chest wall rise. Absent: tenderness - Respiratory Respiratory exam: Present: normal lung sounds bilaterally. Absent: respiratory distress - Cardiovascular Cardiovascular exam: Present: regular rate, normal rhythm. Absent: JVD - Abdominal Exam Abdominal exam: Present: soft, normal bowel sounds. Absent: distention, tenderness, guarding - Extremities Exam Extremities exam: Present: normal inspection, full ROM, normal capillary refill. Absent: calf tenderness - Back Exam Back exam: Present: normal inspection. Absent: tenderness - Neurological Exam Neurological exam: Present: alert, oriented X3 - Psychiatric Psychiatric exam: Present: normal affect, normal mood - Skin Skin exam: Present: warm, dry, intact, normal color
[2019-02-24 12:17] LABS: Basophils % 0.1 % (0.1-2.0); Eosinophils % 0.2 % (0.1-12.0); Hemoglobin 17.1 g/dL (14.1-18.0); Lymphocytes # 1.6 K/mm3 (0.7-4.5); Lymphocytes % 10.6 % (10-50); Mean Corpuscular HGB Conc 33.5 g/dL (31.8-35.4); Mean Corpuscular Hemoglobin 31.8 pg (27.0-31.2); Mean Corpuscular Volume 94.7 fl (80-94); Monocytes # 0.7 K/mm3 (0.1-1.0); Monocytes % 4.5 % (1.7-9.3); Neutrophils # 12.6 K/mm3 (1.8-7.8); Neutrophils % 84.5 % (37.0-80.0); Platelet Count 333 K/mm3 (142-424); Red Blood Count 5.39 M/mm3 (4.60-6.20); Red Cell Distribution Width 13.9 % (11.5-17.5); White Blood Count 14.9 K/mm3 (4.8-10.8)
[2019-02-24 12:27] LABS: Albumin Level 4.5 gm/dL (3.4-5.0); Anion Gap 16.7 mEq/L (5-15); Bilirubin,Total 0.6 mg/dL (0.2-1.0); Calcium 9.4 mg/dL (8.5-10.1); Globulin 4.6 gm/dl (1.3-3.2); Potassium 3.7 mmoL/L (3.5-5.1); Total Protein,Serum 9.1 gm/dL (6.4-8.2)
--- NOTE | 2019-02-24 15:38 | Pharmacy Consult Notes ---
[facility] Pharmacy VTE Monitoring - Patient Demographics Admission date: 02/24/19 Report Date: 02/24/19 Time: 15:38 Allergies/Adverse Reactions: Patient Allergies iodine [IODINE] Allergy (Intermediate, Verified 02/20/19 04:27) I-RASH promethazine [From PHENERGAN] Allergy (Mild, Verified 02/20/19 04:27) NA-HALLUCINATIONS Height: 1.8 m Weight: 88.592 kg Patient Problems: Current Active Problems Diverticulitis (Acute) - VTE Risk Labs: VTE Related Lab Results Hgb 17.1 g/dL (14.1-18.0) 02/24/19 11:53 Hct 51.0 % (42.0-52.0) 02/24/19 11:53 Plt Count 333 K/mm3 (142-424) 02/24/19 11:53 BUN 14 mg/dL (7-18) 02/24/19 11:53 Creatinine 1.00 mg/dL (0.70-1.30) 02/24/19 11:53 Estimated Creat Clear 112 mL/min (50-200) 02/24/19 11:53 Clinical Trial Participant: No - Prophylaxis VTE Prophylaxis Ordered?: Yes Types of VTE Prophylaxis: TEDS Knee High
--- NOTE | 2019-02-24 21:47 | History & Physical Report ---
*Admission Date: 02/24/19 *Chief complaint: abd pain *History of present illness: this wm with lower abd pain over the last few days with hx of diverticular dis - he was seen in the ed-/v and abdominal pain. Started in llq and suprapubic area. Similar symptoms two days ago evaluated and found to have sigmoid diverticulitis without perf- pt was admitted for ivf and abx [facility] History I have reviewed the patient's past medical history: Yes Medical History: Reports:: Hypertension, MRSA Denies:: Cancer, Diabetes Mellitus Type 1, Diabetes Mellitus Type 2, Internal Pacemaker *Have you ever received a pneumonia vaccine?: No *Have you received a flu vaccine this season?: Yes Other Surgeries: Yes: Colonoscopy. No: Pacemaker Amputation: No Fractures: No - *Social History Educational Level: Completed GED/General Educational Development Smoking Status: Current every day smoker Tobacco Type: cigarettes # Packs/Day (cigarettes): 1 Alcohol Intake: current Alcohol Intake Frequency:: a few times a week Substance Use Type: marijuana Last Used Substance: days (ago) *Occupational Status:: unemployed Housing: house Household Members: none *Travel in the last 8 weeks: None - Psychiatric History Expresses thoughts of harming self/others: None Suicide Plan Description: No Plan Family Hx:: Cancer, Hyperlipidemia, Hypertension Review of Systems - Review of Systems Review of systems:: pertinent systems reviewed and negative unless documented below - Constitutional Denies fever(s) - Eyes Denies change in vision - ENT Denies sore throat - *Cardiovascular Denies chest pain - *Respiratory Denies cough - *Gastrointestinal Reports abdominal pain, Reports nausea, Reports vomiting, Denies black, tarry stools - *Genitourinary Denies blood in urine - *Musculoskeletal Denies joint pain - Integumentary/Breasts Denies rash - *Neurologic Denies headache(s) - Psychiatric Denies anxiety Meds Home Medications Medication Instructions Recorded Confirmed Type Ondansetron [Zofran 4mg ODT] 4 mg PO TIDP PRN #10 tab.rapdis 02/20/19 02/24/19 Rx Ciprofloxacin HCl [Ciprofloxacin 500 mg PO BID 02/24/19 02/24/19 History 500mg Tab] metroNIDAZOLE [Flagyl] 500 mg PO TID 02/24/19 02/24/19 History Allergies Allergy/AdvReac Type Severity Reaction Status Date / Time iodine [IODINE] Allergy Intermediate I-RASH Verified 02/20/19 04:27 promethazine [From PHENERGAN] Allergy Mild NA-HALLUCIN Verified 02/20/19 04:27 ATIONS Exam Vital signs and Labs for Last 24 Hours: Temp Pulse Resp BP Pulse Ox 98.4 F 65 20 157/95 H 93 L 02/24/19 20:00 02/24/19 20:00 02/24/19 20:00 02/24/19 20:00 02/24/19 20:00 Laboratory Results - last 24 hr 02/24/19 11:53: WBC 14.9 H, RBC 5.39, Hgb 17.1, Hct 51.0, MCV 94.7 H, MCH 31.8 H , MCHC 33.5, RDW 13.9, Plt Count 333, MPV 8.0, Neut % (Auto) 84.5 H, Lymph % (Auto) 10.6, [place] % (Auto) 4.5, Eos % (Auto) 0.2, Baso % (Auto) 0.1, Neut # (Auto) 12.6 H, Lymph # (Auto) 1.6, [place] # (Auto) 0.7, Eos # (Auto) 0.0, Baso # (Auto) 0.0 02/24/19 11:53: Sodium 140, Potassium 3.7, Chloride 101, Carbon Dioxide 26, Anion Gap 16.7 H, BUN 14, Creatinine 1.00, Estimated Creat Clear 112, Estimated GFR 79, Est GFR ( Amer) 95, Glucose 101, Calcium 9.4, Total Bilirubin 0.6, AST 75 H, ALT 90 H, Alkaline Phosphatase 54, Total Protein 9.1 H, Albumin 4.5, Globulin 4.6 H, Albumin/Globulin Ratio 1.0 L 02/24/19 11:53: Lipase 123 I & O for Last 24 hours: Intake & Output 02/22/19 02/23/19 02/24/19 02/25/19 11:59 11:59 11:59 11:59 Intake Total 1526 / 1526 Balance 1526 / 1526 Weight 200 lb 195 lb 5 oz - Constitutional no acute distress - *Routine HEENT Exam Head: Present: normocephalic Eye: Present: EOMI, PERRL ENT: Present: mucous membranes dry - *Routine Neck Exam Present: supple - *Routine Respiratory Exam Present: CTA bilaterally - *Routine Cardiovascular Exam Present: RRR. Absent: murmur - *Routine Abdominal Exam Present: soft, tenderness - *Routine Extremities Exam Present: full ROM - *Routine Skin Exam Present: intact - *Routine Neurological Exam Present: alert, oriented X3, CN II-XII intact - Routine Psychiatric Exam Present: normal affect Assessment and Plan (1) Diverticulitis Problem details: Discharged with PO abx and zofran Current visit: Yes Status: Acute Category: Medical Code(s): K57.92 - Diverticulitis of intestine, part unspecified, without perforation or abscess without bleeding (2) Tobacco use Current visit: Yes Status: Acute Category: Medical Code(s): Z72.0 - Tobacco use (3) HTN (hypertension) Current visit: Yes Status: Acute Qualifiers: Hypertension type: essential hypertension Qualified Code(s): I10 - Essential (primary) hypertension Category: Medical Code(s): I10 - Essential (primary) hypertension (4) Elevated LFTs Current visit: Yes Status: Acute Category: Medical Code(s): R94.5 - Abno rmal results of liver function studies
[2019-02-25 07:31] LABS: Basophils % 0.2 % (0.1-2.0); Eosinophils % 0.8 % (0.1-12.0); Hematocrit 44.2 % (42.0-52.0); Lymphocytes # 2.1 K/mm3 (0.7-4.5); Lymphocytes % 38.2 % (10-50); Mean Corpuscular HGB Conc 33.2 g/dL (31.8-35.4); Mean Corpuscular Hemoglobin 31.1 pg (27.0-31.2); Mean Corpuscular Volume 93.5 fl (80-94); Mean Platelet Volume 7.9 fl (7.4-10.4); Monocytes # 0.5 K/mm3 (0.1-1.0); Monocytes % 9.5 % (1.7-9.3); Neutrophils # 2.8 K/mm3 (1.8-7.8); Neutrophils % 51.3 % (37.0-80.0); Platelet Count 254 K/mm3 (142-424); Red Blood Count 4.73 M/mm3 (4.60-6.20); Red Cell Distribution Width 13.7 % (11.5-17.5); White Blood Count 5.5 K/mm3 (4.8-10.8)
[2019-02-25 07:46] LABS: Hemoglobin 14.8 g/dL (14.1-18.0)
[2019-02-25 08:11] LABS: Calcium 8.1 mg/dL (8.5-10.1)
--- NOTE | 2019-02-25 13:10 | Discharge Summary ---
General - General Admission date:: 02/24/19 Discharge date: 02/25/19 HPI HPI: this wm with lower abd pain over the last few days with hx of diverticular dis - he was seen in the ed-/v and abdominal pain. Started in llq and suprapubic area. Similar symptoms two days ago evaluated and found to have sigmoid diverticulitis without perf- pt was admitted for ivf and abx Hospital Course Hospital Course: ct abd/pelvis:IMPRESSION: 1. Overall no significant change in the diverticulosis of the sigmoid colon with associated thickening and mild stranding in the paracolic fat which may be due to colitis or diverticulitis. Evaluation is limited without IV and oral contrast. Follow-up suggested to confirm resolution and to exclude an underlying neoplastic process with a chronic thickening of the sigmoid colon. 2. No evidence of abscess or perforation Pt was able to eat breakfast and tolerated well. pt will need colonoscopy as a out pt. Objective Vital signs: Temp Pulse Resp BP Pulse Ox 97.9 F 57 L 16 162/97 H 97 02/25/19 08:00 02/25/19 08:00 02/25/19 08:00 02/25/19 08:00 02/25/19 08:00 no acute distress - *Routine HEENT Exam Head: Present: normocephalic Eye: Present: PERRL ENT: Present: mucous membranes moist - *Routine Respiratory Exam Present: CTA bilaterally - *Routine Cardiovascular Exam Present: RRR - *Routine Abdominal Exam Present: soft, normoactive bowel sounds - *Routine Extremities Exam Present: full ROM - *Routine Skin Exam Present: intact - *Routine Neurological Exam Present: alert, oriented X3 - Routine Psychiatric Exam Present: normal affect Results Labs on day of discharge: Labs from last 24 hours 02/25/19 02/25/19 07:04 07:04 WBC 5.5 D RBC 4.73 Hgb 14.8 D Hct 44.2 MCV 93.5 MCH 31.1 MCHC 33.2 RDW 13.7 Plt Count 254 MPV 7.9 Neut % (Auto) 51.3 Lymph % (Auto) 38.2 [place] % (Auto) 9.5 H Eos % (Auto) 0.8 Baso % (Auto) 0.2 Neut # (Auto) 2.8 Lymph # (Auto) 2.1 [place] # (Auto) 0.5 Eos # (Auto) 0.0 Baso # (Auto) 0.0 Sodium 139 Potassium 4.0 Chloride 104 Carbon Dioxide 27 Anion Gap 12.0 BUN 11 Creatinine 0.95 Estimated Creat Clear 117 Estimated GFR 84 Est GFR ( Amer) 101 Glucose 97 Calcium 8.1 L D - Additional Comments rounded with kiara, all orders per kiara DS: Diagnosis - Discharge Diagnosis (1) Diverticulitis Status: Acute Problem details: Discharged with PO abx and zofran (2) Tobacco use Status: Acute (3) HTN (hypertension) Status: Acute (4) Elevated LFTs Status: Acute Discharge Plan - Patient Discharge Instructions ACTIVITY: Continue current activity DIET: continue same diet Patient Instructions: DI for Diverticulitis, DI for Vomiting -- Adult - Follow up Plan Follow up with: Mitchel Call MD [Staff Physician] - Disposition: Home, Self-Assisted Medications: Home Medications Medication Instructions Recorded Confirmed Type Ondansetron [Zofran 4mg ODT] 4 mg PO TIDP PRN #10 tab.rapdis 02/20/19 02/24/19 Rx Ciprofloxacin HCl [Ciprofloxacin 500 mg PO BID 02/24/19 02/24/19 History 500mg Tab] metroNIDAZOLE [Flagyl] 500 mg PO TID 02/24/19 02/24/19 History Cefdinir [Omnicef 300mg Capsule] 300 mg PO BID #20 cap 02/25/19 Rx Prescriptions/Medication Reconciliation: New Cefdinir [Omnicef 300mg Capsule] 300 mg PO BID #20 cap Continue Ondansetron [Zofran 4mg ODT] 4 mg PO TIDP PRN #10 tab.rapdis PRN Reason: Nausea And Vomiting metroNIDAZOLE [Flagyl] 500 mg PO TID Discontinued Ciprofloxacin HCl [Ciprofloxacin 500mg Tab] 500 mg PO BID
== END 2019-02-25 14:00 | disposition home or self-care (01) ==
LOC: ER 11:46 → 2ND 11:46
PROVIDERS: ADMIT Emergency Medicine; ATTEND Emergency Medicine
CPT/HCPCS: 36415; 74176; 80048; 80053; 83690; 85025; 93005; 96365; 96367; 96375; 96376; 99284; G0378; J1956; J2405

== ENCOUNTER 2019-06-10 12:44 | Observation (INO) ==
--- NOTE | 2019-06-10 13:05 | Emergency Department Note ---
ED Disposition Clinical Impression: Sigmoid diverticulitis Abdominal pain Qualifiers: Abdominal location: lower abdomen, unspecified Qualified Code(s): R10.30 - Lower abdominal pain, unspecified Disposition: Admitted as Observation Condition on Discharge: Fair (Stable) Referrals: Mitchel Call MD [Primary Care Provider] - Time of Disposition: 15:46 - Critical Care Critical Care Time: No Attestation: On , the high probability of a clinically significant, sudden or life threatening deterioration of the following system(s) required my full and direct attention, intervention and personal management. The time I documented below is in addition to time spent performing reported procedures but includes the following listed in this critical care notation. Medical Decision Making - Medical Records Medical records reviewed: Yes: I reviewed the patient's medical records. - Sd Inquiry Pt receiving controlled substance: No Sd was queried for this patient: No Vital Signs: 06/10/19 12:51 06/10/19 14:16 06/10/19 14:30 Temperature 98.4 F Temperature Source Oral Pulse Rate [Right Radial] 86 76 81 Respiratory Rate 22 20 Blood Pressure [Right Arm] 169/119 H 155/107 H 157/106 H Blood Pressure Mean [Right Arm] 135 123 123 Blood Pressure Source [Right Arm] Automatic Cuff Blood Pressure Position [Right Arm] Sitting Supine Supine 02 Sat by Pulse Oximetry 99 94 L 95 Oxygen Delivery Method Room Air 06/10/19 15:00 Temperature Temperature Source Pulse Rate [Right Radial] 63 Respiratory Rate Blood Pressure [Right Arm] 172/105 H Blood Pressure Mean [Right Arm] 127 Blood Pressure Source [Right Arm] Blood Pressure Position [Right Arm] 02 Sat by Pulse Oximetry 96 Oxygen Delivery Method - Lab Data Lab results reviewed: Yes: I reviewed the patient's lab results. Lab Results 06/10/19 13:00: WBC 9.9, RBC 5.19, Hgb 16.4, Hct 50.5, MCV 97.3 H, MCH 31.6 H, MCHC 32.5, RDW 14.1, Plt Count 274, MPV 8.4, Neut % (Auto) 81.9 H, Lymph % (Auto) 11.5, [place] % (Auto) 6.0, Eos % (Auto) 0.4, Baso % (Auto) 0.2, Neut # (Auto) 8.1 H, Lymph # (Auto) 1.1, [place] # (Auto) 0.6, Eos # (Auto) 0.0, Baso # (Auto) 0.0 06/10/19 13:00: Sodium 136, Potassium 4.6, Chloride 101, Carbon Dioxide 27, Anion Gap 12.6, BUN 8, Creatinine 0.93, Estimated Creat Clear 121, Estimated GFR 86, Est GFR ( Amer) 104, Glucose 100, Calcium 9.4, Total Bilirubin 0.6, AST 85 H, ALT 87 H, Alkaline Phosphatase 51, Total Protein 8.1, Albumin 4.0, Globulin 4.1 H, Albumin/Globulin Ratio 1.0 L, Lipase 173 06/10/19 14:15: Urine Color Yellow, Urine Appearance Clear, Urine pH 6.5, Ur Specific [place] 1.015, Urine Protein Negative, Urine Glucose (UA) Negative, Urine Ketones Trace, Urine Blood Negative, Urine Nitrate Negative, Urine Bilirubin Negative, Urine Urobilinogen 0.2, Ur Leukocyte Esterase Negative, Urine RBC None, Urine WBC Occasional, Ur Squamous Epith Cells None, Urine Bacteria Trace 06/10/19 14:20: Lactate 0.5 Result diagrams: 06/10/19 13:00 06/10/19 13:00 Orders (Tests/Meds): ED MEDICATIONS Discontinued Medications Generic Name Dose Route Start Last Admin Trade Name Ema PRN Reason Stop Dose Admin Sodium Chloride 500 mls @ 999 mls/hr 06/10/19 13:00 06/10/19 13:15 Sod Chlor 0.9% 1000ml Bag IV 06/10/19 13:30 999 mls/hr .Q31M BERTIN Administration Ioversol 75 ml 06/10/19 14:03 06/10/19 14:26 Rad-Optiray 350 100ml Vial IV 06/10/19 14:04 75 ml ONCE ONE Administration Protocol Ioversol 75 ml 06/10/19 14:23 Rad-Optiray 350 100ml Vial IV 06/10/19 14:24 ONCE ONE Protocol Morphine Sulfate 4 mg 06/10/19 12:58 06/10/19 13:15 Morphine 4mg/Ml Syringe IV 06/10/19 12:59 4 mg ONCE ONE Administration Ondansetron HCl 4 mg 06/10/19 12:58 06/10/19 13:15 Zofran 4mg/2ml Vial IV 06/10/19 12:59 4 mg ONCE ONE Administration Sodium Chloride 10 ml 06/10/19 14:03 06/10/19 14:25 Rad-Saline Flush 10ml Syringe IV 06/10/19 14:04 10 ml ONCE ONE Administration Sodium Chloride 10 ml 06/10/19 14:23 Rad-Saline Flush 10ml Syringe IV 06/10/19 14:24 ONCE ONE - CT Data CT Scan: Abdomen, Pelvis Time Received: 15:[address] Reviewed: Yes: I have viewed the radiologist's interpretation Findings Narrative: [address] [place] [address] [place] Scan Report Signed Patient: Eric Blankenship MR#: [id number] : 1965 Acct:[id number] Age/Sex: 53 / M ADM Date: 06/10/19 Loc: ER Attending Dr: Ordering Physician: Stefano Phipps III, DO Date of Service: 06/10/19 Procedure(s): CT abdomen pelvis w con Accession Number(s): [id number] cc: Mitchel Call MD; Dwayne Reyes MD~ CT abdomen pelvis w con CLINICAL INDICATION: ITS.REASON: Abdominal pain. Diverticulitis history. ORDERING PHYSICIAN: Stefano Phipps III, DO PATIENT AGE: 53 years COMPARISON: 05/27/2019. TECHNIQUE: Axial images obtained with sagittal and coronal reformats. All CT scans at the facility use one or more dose reduction, viz: automated exposure control, ma/kV adjustment per patient size (including targeted exams where dose is matched to indication, i.e. head), or iterative reconstruction technique. PROCEDURE: Oral Contrast: None IV Contrast: Yes . FINDINGS: Lower thorax: No acute finding ABDOMEN: Liver: Liver is stable with fatty infiltration. Gallbladder: Nondistended. No radio opaque stones. Pancreas: No masses or peripancreatic fluid collections. Spleen: Unremarkable. Adrenals: Unremarkable Kidneys/ureters: No masses. No renal calculi. No hydronephrosis. No perinephric fluid collections. No ureteral dilatation or obvious ureteral calculi. Stomach bowel: Again seen is diffuse long segment of sigmoid colon wall thickening with diverticula. There are stable pericolonic hazy densities. There is a rounded hypodense focus measuring 1.3 cm adjacent to the anterior inferior wall of the mid sigmoid colon on image #90. The remainder of the gastrointestinal tract is stable. Appendix: No evidence of appendicitis. PELVIS: Reproductive: Unremarkable Bladder: Nondistended. No obvious stones or masses. ABDOMEN & PELVIS: Peritoneum: No abnormal fluid collections. No obvious inflammatory changes. No free air. Lymph nodes: No enlarged lymph nodes apparent. Vasculature: No evidence of abdominal aortic aneurysm. No retroperitoneal hemorrhage evident. Bones: No acute fracture IMPRESSION: There are fairly stable findings of acute to subacute sigmoid diverticulitis however there is perhaps a small 1.3 cm pericolonic hypodensity which could be a small abscess which would suggest possible contained microperforation. Stable hepatic steatosis. Dictated By: Dwayne Reeys MD 06/10/19 1444 Signed By: <Electronically signed by Dwayne Reyes MD in [place]> 06/10/19 1452 Medical Decision Narrative: 13:07 Pt evaluated. Abdominal work up ordered and pending. Morphine 4 mg IVP, Zofran 4 mg IVP and IV fluids ordered. 15:[address] abdomen/pelvis w/IV contrast reviewed. In light of CT findings, I will discuss case with surgeon emergency services professional Dr. Rosales. 15:[address] Rosales. I will discuss case with PCP Dr. Call - awaiting his call back regarding admit to observation. I have discussed results of work up, diagnosis and care plan with pt. He understands, agrees and all questions answered. 15:[address] Call and he has accepted admit of pt. Pt aware. BC x 2 and Invanz ordered. Abdominal Pain HPI - General Chief Complaint: Abdominal Pain Stated Complaint: vomiting nausea Time Seen by Provider: 06/10/19 12:50 Mode of Arrival: Ambulatory Source of Information: Patient, Spouse Limitations: No Limitations Description of Symptoms (Recalled from ER Triage Doc. by RN): PT STATES THAT HE WAS DX WITH DIVERTICULITIS THROUGH THE ED APPROX 1 WEEK AGO IN THE ED AND HASN'T FELT MUCH BETTER SINCE DESPITE ANTIBIOTIC TREATMENT. PT STATES THAT THE LOWER ABD PAIN HAS INCREASED SINCE LAST NIGHT ALONG WITH N/V/D - History of Present Illness HPI narrative: Pt is here in the ER c/o low mid abdomen pain. Pt seen here in the ER on 05-27-19 and diagnosed with acute diverticulitils. Pt placed on antibiotics and subsequently discharged to home. Pt has not followed up with PCP since being discharged from the ER. Pt is now here c/o persistent pain, nausea, dry heaves for past couple of days, and multiple bouts of diarrhea today. No constipation or blood in stool. No fever, chest pain, sob. Pt has been compliant with antibiotics from ER visit. No other complaints. - Related Data Previous Rx's Medication Instructions Recorded hydrocodone 5 mg-acetaminophen 325 1 tab PO BID PRN #6 tab 03/23/19 mg tablet levofloxacin 500 mg tablet 500 mg PO DAILY 10 Days #10 tab 03/23/19 metronidazole 500 mg tablet 500 mg PO TID 10 Days #30 tab 03/23/19 Ciprofloxacin HCl [Ciprofloxacin 500 mg PO BID #20 tab 05/27/19 500mg Tab] Hydrocodone/Acetaminophen [[place] 1 each PO Q6HP PRN #10 tab 05/27/19 5-325 Tablet] Ondansetron [Zofran 4mg ODT] 4 mg PO Q8HP PRN #12 tab.rapdis 05/27/19 metroNIDAZOLE [Flagyl 500mg 500 mg PO Q8H #30 tab 05/27/19 Tablet] Allergies Allergy/AdvReac Type Severity Reaction Status Date / Time iodine [IODINE] Allergy Intermediate I-RASH Verified 05/27/19 01:41 promethazine [From PHENERGAN] Allergy Mild NA-[facility]UCIN [facility]/27/19 [facility] - Hepatitis A Screen Drug use history?: No High risk sexual behaviors?: No History of sexually transmitted infection?: No Currently employed?: No Childcare worker?: No Do you have indoor plumbing?: Yes Do you have electricity?: Yes Attestation statement:: This patient has been screened for Hepatitis A risk factors. I have reviewed the patient's past medical history: Yes Medical History: Reports:: Hypertension, MRSA Denies:: Cancer, Diabetes Mellitus Type 1, Diabetes Mellitus Type 2, Internal Pacemaker, Pulmonary Embolism, Seizures, Transient Ischemic Attacks (TIA) Comment: Diverticulitis Other Surgeries: Yes: Colonoscopy. No: Pacemaker Amputation: No Fractures: No - Social History Smoking Status: Current every day smoker Tobacco Type: cigarettes # Packs/Day (cigarettes): 1 Alcohol Intake: current Alcohol Intake Frequency:: holidays/special occasions only Substance Use Type: marijuana Occupational Status: unemployed Housing: house Household Members: significant other Family Hx:: Cancer, Hyperlipidemia, Hypertension ROS Obtained: Yes All systems reviewed & no additional complaints - Constitutional Constitutional: Reports system reviewed and no additional complaints, except as docu - Eyes Eyes: Reports system reviewed and no additional complaints, except as docu - ENT Ears, Nose, Mouth, and Throat: Reports system reviewed and no additional complaints, except as docu - Cardiovascular Cardiovascular: Reports system reviewed and no additional complaints, except as docu - Respiratory Respiratory: Yes system reviewed and no additional complaints, except as docu - Gastrointestinal Gastrointestingal: Reports: system reviewed and no additional complaints, except as docu, as per HPI, abdominal pain, diarrhea (Several times today.), nausea (with dry heaves past few days.). Denies: constipation, vomiting blood - Genitourinary Male Genitourinary: Reports system reviewed and no additional complaints, except as docu - Musculoskeletal Musculoskeletal: Reports system reviewed and no additional complaints, except as docu - Integumentary/Breasts Skin/Breast: Reports system reviewed and no additional complaints, except as docu - Neurologic Neurologic: Reports system reviewed and no additional complaints, except as docu - Endocrine Endocrine: Reports system reviewed and no additional complaints, except as docu - Hematologic/Lymphatic Henatologic/Lymphatic: Reports system reviewed and no additional complaints, except as docu - Allergic/Immunologic Allergic/Immunologic: Reports system reviewed and no additional complaints, except as docu Physical Exam - General General appearance: alert, anxious (mildly) - Head Head exam: atraumatic, normocephalic, normal inspection - Eye Eye exam: Present: normal appearance, PERRL, EOMI - ENT ENT exam: Present: mucous membranes moist - Neck Neck exam: Present: trachea midline - Chest Chest inspection: Present: normal inspection, symmetric chest wall rise - Respiratory Respiratory exam: Present: normal lung sounds bilaterally. Absent: respiratory distress, wheezes - Cardiovascular Cardiovascular exam: Present: regular rate, normal heart sounds. Absent: rubs, gallop, clicks - Abdominal Exam Abdominal exam: Present: soft, tenderness (Pt admits to tenderness on palpation of lower mid abdomen.), hyperactive bowel sounds. Absent: guarding, rebound, rigidity, Hardin's sign, tenderness at McBurney's Point - Extremities Exam Extremities exam: Present: normal inspection, full ROM - Back Exam Back exam: Present: normal inspection - Neurological Exam Neurological exam: Present: alert, oriented X3, CN II-XII intact - Psychiatric Psychiatric exam: Present: anxious (Mildly ) - Skin Skin exam: Present: warm, dry, intact
[2019-06-10 13:18] LABS: Basophils % 0.2 % (0.1-2.0); Eosinophils % 0.4 % (0.1-12.0); Hematocrit 50.5 % (42.0-52.0); Hemoglobin 16.4 g/dL (14.1-18.0); Lymphocytes # 1.1 K/mm3 (0.7-4.5); Lymphocytes % 11.5 % (10-50); Mean Corpuscular HGB Conc 32.5 g/dL (31.8-35.4); Mean Corpuscular Volume 97.3 fl (80-94); Mean Platelet Volume 8.4 fl (7.4-10.4); Monocytes # 0.6 K/mm3 (0.1-1.0); Neutrophils # 8.1 K/mm3 (1.8-7.8); Neutrophils % 81.9 % (37.0-80.0); Platelet Count 274 K/mm3 (142-424); Red Blood Count 5.19 M/mm3 (4.60-6.20); Red Cell Distribution Width 14.1 % (11.5-17.5); White Blood Count 9.9 K/mm3 (4.8-10.8)
[2019-06-10 13:30] LABS: Anion Gap 12.6 mEq/L (5-15); Bilirubin,Total 0.6 mg/dL (0.2-1.0); Calcium 9.4 mg/dL (8.5-10.1); Globulin 4.1 gm/dl (1.3-3.2); Total Protein,Serum 8.1 gm/dL (6.4-8.2)
[2019-06-10 14:39] LABS: Appearance,Urine CLEAR (Clear); Bilirubin,Urine Negative (Negative); Blood, Urine Negative (Negative); Color,Urine YELLOW (Yellow); Glucose,Urine (UA) Negative (Negative); Ketones,Urine TRACE (Negative); Leukocyte Esterase,Urine Negative (Negative); PH,Urine 6.5 (5.0-8.5); Protein,Urine Negative (Negative); Specific Gravity, Urine 1.015 (1.005-1.030); Urobilinogen,Urine 0.2 EU/dl (0.2)
[2019-06-10 14:57] LABS: Bacteria,Urine Trace /lpf; Microscopic, Urine URINE MICROSCOPIC (MICROSCOPIC); WBC,Urine Occasional #/hpf (0-3)
--- NOTE | 2019-06-10 20:06 | History & Physical Report ---
*Admission Date: 06/10/19 *Chief complaint: abd pain *History of present illness: this is wm who has failed op treatment -pt was seen in the ed-t is here in the ER c/o low mid abdomen pain. Pt seen here in the ER on 05-27-19 and diagnosed with acute diverticulitils. Pt placed on antibiotics and subsequently discharged to home. Pt has not followed up with PCP since being discharged from the ER. Pt is now here c/o persistent pain, nausea, dry heaves for past couple of days, and multiple bouts of diarrhea today. No constipation or blood in stool. No fever, chest pain, sob. Pt has been compliant with antibiotics from ER visit. No other complaints. [facility] History I have reviewed the patient's past medical history: Yes Medical History: Reports:: Hypertension, MRSA Denies:: Cancer, Diabetes Mellitus Type 1, Diabetes Mellitus Type 2, Internal Pacemaker, Pulmonary Embolism, Seizures, Transient Ischemic Attacks (TIA) *Have you ever received a pneumonia vaccine?: Yes *Have you received a flu vaccine this season?: Yes Other Surgeries: Yes: Colonoscopy. No: Pacemaker Amputation: No Fractures: No - *Social History Educational Level: Completed GED/General Educational Development Smoking Status: Current every day smoker Tobacco Type: cigarettes # Packs/Day (cigarettes): 1 Alcohol Intake: current Alcohol Intake Frequency:: 0-2 drinks per day Substance Use Type: marijuana Last Used Substance: days (ago) *Occupational Status:: unemployed Housing: house Household Members: significant other *Travel in the last 8 weeks: None - Psychiatric History Expresses thoughts of harming self/others: Vague Suicide Plan Description: No Plan Family Hx:: Cancer, Heart Attack Review of Systems - Review of Systems Review of systems:: pertinent systems reviewed and negative unless documented below - Constitutional Denies fever(s) - Eyes Denies change in vision - ENT Denies sore throat - *Cardiovascular Denies chest pain at rest - *Respiratory Denies cough - *Gastrointestinal Reports abdominal pain, Reports nausea, Reports vomiting - *Genitourinary Denies blood in urine - *Musculoskeletal Denies joint swelling - Integumentary/Breasts Denies rash - *Neurologic Denies seizure-like activity - Psychiatric Denies anxiety Meds Home Medications Medication Instructions Recorded Confirmed Type Hydrocodone/Acetaminophen [[place] 1 each PO Q6HP PRN #10 tab 05/27/19 06/11/19 Rx 5-325 Tablet] Ondansetron [Zofran 4mg ODT] 4 mg PO Q8HP PRN #12 tab.rapdis 05/27/19 06/11/19 Rx metroNIDAZOLE [Flagyl 500mg 500 mg PO TID 06/10/19 06/10/19 History Tablet] Ciprofloxacin HCl [Ciprofloxacin 500 mg PO BID 06/11/19 06/11/19 History 500mg Tab] Allergies Allergy/AdvReac Type Severity Reaction Status Date / Time iodine [IODINE] Allergy Intermediate I-RASH Verified 05/27/19 01:41 promethazine [From PHENERGAN] Allergy Mild NA-HALLUCIN Verified 05/27/19 01:41 ATIONS Exam Vital signs and Labs for Last 24 Hours: Temp Pulse Resp BP Pulse Ox 97.7 F 82 18 153/98 H 97 06/10/19 19:56 06/10/19 19:56 06/10/19 19:56 06/10/19 19:56 06/10/19 19:56 Laboratory Results - last 24 hr 06/10/19 13:00: WBC 9.9, RBC 5.19, Hgb 16.4, Hct 50.5, MCV 97.3 H, MCH 31.6 H, MCHC 32.5, RDW 14.1, Plt Count 274, MPV 8.4, Neut % (Auto) 81.9 H, Lymph % (Auto) 11.5, [place] % (Auto) 6.0, Eos % (Auto) 0.4, Baso % (Auto) 0.2, Neut # (Auto) 8.1 H, Lymph # (Auto) 1.1, [place] # (Auto) 0.6, Eos # (Auto) 0.0, Baso # (Auto) 0.0 06/10/19 13:00: Sodium 136, Potassium 4.6, Chloride 101, Carbon Dioxide 27, Anion Gap 12.6, BUN 8, Creatinine 0.93, Estimated Creat Clear 121, Estimated GFR 86, Est GFR ( Amer) 104, Glucose 100, Calcium 9.4, Total Bilirubin 0.6, AST 85 H, ALT 87 H, Alkaline Phosphatase 51, Total Protein 8.1, Albumin 4.0, Globulin 4.1 H, Albumin/Globulin Ratio 1.0 L, Lipase 173 07/26/19 14:15: Urine Color Yellow, Urine Appearance Clear, Urine pH 6.5, Ur Specific [place] 1.015, Urine Protein Negative, Urine Glucose (UA) Negative, Urine Ketones Trace, Urine Blood Negative, Urine Nitrate Negative, Urine Bilirubin Negative, Urine Urobilinogen 0.2, Ur Leukocyte Esterase Negative, Urine RBC None, Urine WBC Occasional, Ur Squamous Epith Cells None, Urine Bacteria Trace 06/10/19 14:20: Lactate 0.5 I & O for Last 24 hours: Intake & Output 06/08/19 06/09/19 06/10/19 06/11/19 11:59 11:59 11:59 11:59 Intake Total 645 / 645 Balance 645 / 645 Weight 189 lb 3 oz - Constitutional no acute distress - *Routine HEENT Exam Head: Present: normocephalic, atraumatic Eye: Present: EOMI, PERRL ENT: Present: mucous membranes dry - *Routine Neck Exam Present: supple - *Routine Respiratory Exam Present: CTA bilaterally - *Routine Cardiovascular Exam Present: RRR, murmur - *Routine Abdominal Exam Present: soft, tenderness. Absent: rebound - *Routine Extremities Exam Absent: calf tenderness - *Routine Skin Exam Present: intact - *Routine Neurological Exam Present: alert, oriented X3, CN II-XII intact - Routine Psychiatric Exam Present: normal affect Assessment and Plan (1) Diverticulitis Problem details: Discharged with PO abx and zofran Current visit: No Status: Acute Category: Medical Code(s): K57.92 - Diverticulitis of intestine, part unspecified, without perforation or abscess without bleeding
[2019-06-11 06:54] LABS: Basophils % 0.3 % (0.1-2.0); Eosinophils # 0.1 K/mm3 (0.0-0.4); Eosinophils % 1.9 % (0.1-12.0); Lymphocytes # 1.9 K/mm3 (0.7-4.5); Lymphocytes % 44.1 % (10-50); Mean Corpuscular HGB Conc 32.4 g/dL (31.8-35.4); Mean Corpuscular Volume 94.4 fl (80-94); Mean Platelet Volume 8.1 fl (7.4-10.4); Monocytes # 0.4 K/mm3 (0.1-1.0); Monocytes % 10.1 % (1.7-9.3); Neutrophils # 1.9 K/mm3 (1.8-7.8); Neutrophils % 43.6 % (37.0-80.0); Platelet Count 211 K/mm3 (142-424); Red Blood Count 4.45 M/mm3 (4.60-6.20); Red Cell Distribution Width 14.1 % (11.5-17.5); White Blood Count 4.3 K/mm3 (4.8-10.8)
[2019-06-11 06:55] LABS: Anion Gap 9.7 mEq/L (5-15)
[2019-06-11 07:04] LABS: Calcium 8.3 mg/dL (8.5-10.1)
[2019-06-11 07:12] LABS: Hemoglobin 14.4 g/dL (14.1-18.0)
--- NOTE | 2019-06-11 08:32 | Pharmacy Consult Notes ---
[facility] Pharmacy VTE Monitoring - Patient Demographics Admission date: 06/10/19 Report Date: 06/11/19 Time: 08:32 Allergies/Adverse Reactions: Patient Allergies iodine [IODINE] Allergy (Intermediate, Verified 05/27/19 01:41) I-RASH promethazine [From PHENERGAN] Allergy (Mild, Verified 05/27/19 01:41) NA-HALLUCINATIONS Height: 1.8 m Weight: 85.831 kg Patient Problems: Current Active Problems (Updated 06/10/19 @ 20:06 by Mitchel Call MD) Abdominal pain (Acute) Sigmoid diverticulitis (Acute) - VTE Risk Labs: VTE Related Lab Results Hgb 14.4 g/dL (14.1-18.0) D 06/11/19 06:18 Hct 42.0 % (42.0-52.0) 06/11/19 06:18 Plt Count 211 K/mm3 (142-424) 06/11/19 06:18 BUN 7 mg/dL (7-18) 06/11/19 06:18 Creatinine 0.85 mg/dL (0.70-1.30) 06/11/19 06:18 Estimated Creat Clear 125 mL/min (50-200) 06/11/19 06:18 VTE Score: 2 VTE Risk Level: Very Low Risk - Prophylaxis VTE Prophylaxis Ordered?: Yes Types of VTE Prophylaxis: TEDS Knee High Location of Applied Device: Bilateral Lower Extremeties - VTE Diagnosis Confirmed Treatment or plan recommended: Continue Current Treatment
--- NOTE | 2019-06-11 09:05 | Progress Note ---
Internal Medicine - PN: Subj *Date: 06/12/19 *Time: 08:22 Interval history: abd pain - sl better but still not feeling well Exam Vital signs and Labs for Last 24 Hours: Temp Pulse Resp BP Pulse Ox 97.8 F 62 15 150/87 H 95 06/11/19 08:00 06/11/19 08:00 06/11/19 08:00 06/11/19 08:00 06/11/19 08:00 Laboratory Results - last 24 hr 06/10/19 13:00: WBC 9.9, RBC 5.19, Hgb 16.4, Hct 50.5, MCV 97.3 H, MCH 31.6 H, MCHC 32.5, RDW 14.1, Plt Count 274, MPV 8.4, Neut % (Auto) 81.9 H, Lymph % (Auto) 11.5, [place] % (Auto) 6.0, Eos % (Auto) 0.4, Baso % (Auto) 0.2, Neut # (Auto) 8.1 H, Lymph # (Auto) 1.1, [place] # (Auto) 0.6, Eos # (Auto) 0.0, Baso # (Auto) 0.0 06/10/19 13:00: Sodium 136, Potassium 4.6, Chloride 101, Carbon Dioxide 27, Anion Gap 12.6, BUN 8, Creatinine 0.93, Estimated Creat Clear 121, Estimated GFR 86, Est GFR ( Amer) 104, Glucose 100, Calcium 9.4, Total Bilirubin 0.6, AST 85 H, ALT 87 H, Alkaline Phosphatase 51, Total Protein 8.1, Albumin 4.0, Globulin 4.1 H, Albumin/Globulin Ratio 1.0 L, Lipase 173 06/10/19 14:15: Urine Color Yellow, Urine Appearance Clear, Urine pH 6.5, Ur Specific [place] 1.015, Urine Protein Negative, Urine Glucose (UA) Negative, Urine Ketones Trace, Urine Blood Negative, Urine Nitrate Negative, Urine Bilirubin Negative, Urine Urobilinogen 0.2, Ur Leukocyte Esterase Negative, Urine RBC None, Urine WBC Occasional, Ur Squamous Epith Cells None, Urine Bacteria Trace 06/10/19 14:20: Lactate 0.5 06/11/19 06:18: WBC 4.3 L D, RBC 4.45 L, Hgb 14.4 D, Hct 42.0, MCV 94.4 H, MCH 30.6, MCHC 32.4, RDW 14.1, Plt Count 211, MPV 8.1, Neut % (Auto) 43.6, Lymph % (Auto) 44.1, [place] % (Auto) 10.1 H, Eos % (Auto) 1.9, Baso % (Auto) 0.3, Neut # (Auto) 1.9, Lymph # (Auto) 1.9, [place] # (Auto) 0.4, Eos # (Auto) 0.1, Baso # (Auto) 0.0 06/11/19 06:18: Sodium 134 L, Potassium 3.7, Chloride 102, Carbon Dioxide 26, Anion Gap 9.7, BUN 7, Creatinine 0.85, Estimated Creat Clear 125, Estimated GFR 95, Est GFR ( Amer) 115, Glucose 98, Calcium 8.3 L D I & O for Last 24 hours: Intake & Output 06/08/19 06/09/19 06/10/19 06/11/19 11:59 11:59 11:59 11:59 Intake Total 1938 / 193 Output Total 1300 / 1300 Balance 638 / 638 Weight 189 lb 3.599 oz - Constitutional no acute distress - *Routine HEENT Exam Head: Present: normocephalic Eye: Present: EOMI, PERRL ENT: Present: mucous membranes dry - *Routine Neck Exam Absent: JVD - *Routine Respiratory Exam Absent: respiratory distress - *Routine Cardiovascular Exam Present: RRR - *Routine Abdominal Exam Present: soft, tenderness - *Routine Extremities Exam Present: full ROM - *Routine Skin Exam Present: intact - *Routine Neurological Exam Present: alert, oriented X3, CN II-XII intact - Routine Psychiatric Exam Present: normal affect
--- NOTE | 2019-06-11 09:34 | Consult Report ---
*Admission Date: 06/10/19 *Reason for consult:: Diverticulitis *History of present illness: This is a 53-year-old gentleman who presents the emergency department yesterday with increasing abdominal pain. He was undergoing treatment as an outpatient for mild to moderate diverticulitis. A CT scan revealed fairly stable changes; however, a small area of hypodensity was noted and this was felt to possibly rep resent a very small abscess. He was placed on IV antibiotics and admitted for further evaluation and management. Review of Systems - Constitutional Denies chills - Eyes Denies change in vision - ENT Denies dizziness - *Cardiovascular Denies chest pain - *Respiratory Denies cough - *Gastrointestinal Reports abdominal pain - *Genitourinary Denies difficulty urinating - *Musculoskeletal Denies abnormal walking - Integumentary/Breasts Denies unusual bruising - *Neurologic Denies abnormal speech - Psychiatric Denies anxiety - Endocrine Denies flushing - Hematologic/Lymphatic Denies easy bleeding - Allergic/Immunologic Denies wheezing [facility] History Medical History: Reports:: Hypertension, MRSA Denies:: Cancer, Diabetes Mellitus Type 1, Diabetes Mellitus Type 2, Internal Pacemaker, Pulmonary Embolism, Seizures, Transient Ischemic Attacks (TIA) *Have you ever received a pneumonia vaccine?: Yes *Have you received a flu vaccine this season?: Yes Other Surgeries: Yes: Colonoscopy. No: Pacemaker Amputation: No Fractures: No - *Social History Educational Level: Completed GED/General Educational Development Smoking Status: Current every day smoker Tobacco Type: cigarettes # Packs/Day (cigarettes): 1 Alcohol Intake: current Alcohol Intake Frequency:: 0-2 drinks per day Substance Use Type: marijuana Last Used Substance: days (ago) *Occupational Status:: unemployed Housing: house Household Members: significant other *Travel in the last 8 weeks: None - Psychiatric History Expresses thoughts of harming self/others: Vague Suicide Plan Description: No Plan Family Hx:: Cancer, Heart Attack Meds Home Medications Medication Instructions Recorded Confirmed Type Hydrocodone/Acetaminophen [[place] 1 each PO Q6HP PRN #10 tab 05/27/19 06/11/19 Rx 5-325 Tablet] Ondansetron [Zofran 4mg ODT] 4 mg PO Q8HP PRN #12 tab.rapdis 05/27/19 06/11/19 Rx metroNIDAZOLE [Flagyl 500mg 500 mg PO TID 06/10/19 06/10/19 History Tablet] Ciprofloxacin HCl [Ciprofloxacin 500 mg PO BID 06/11/19 06/11/19 History 500mg Tab] Allergies Allergy/AdvReac Type Severity Reaction Status Date / Time iodine [IODINE] Allergy Intermediate I-RASH Verified 05/27/19 01:41 promethazine [From PHENERGAN] Allergy Mild NA-HALLUCIN Verified 05/27/19 01:41 ATIONS Exam Vital signs and Labs for Last 24 Hours: Temp Pulse Resp BP Pulse Ox 97.8 F 62 15 150/87 H 95 06/11/19 08:00 06/11/19 08:00 06/11/19 08:00 06/11/19 08:00 06/11/19 08:00 Laboratory Results - last 24 hr 06/10/19 13:00: WBC 9.9, RBC 5.19, Hgb 16.4, Hct 50.5, MCV 97.3 H, MCH 31.6 H, MCHC 32.5, RDW 14.1, Plt Count 274, MPV 8.4, Neut % (Auto) 81.9 H, Lymph % (Auto) 11.5, [place] % (Auto) 6.0, Eos % (Auto) 0.4, Baso % (Auto) 0.2, Neut # (Auto) 8.1 H, Lymph # (Auto) 1.1, [place] # (Auto) 0.6, Eos # (Auto) 0.0, Baso # (Auto) 0.0 06/10/19 13:00: Sodium 136, Potassium 4.6, Chloride 101, Carbon Dioxide 27, Anion Gap 12.6, BUN 8, Creatinine 0.93, Estimated Creat Clear 121, Estimated GFR 86, Est GFR ( Amer) 104, Glucose 100, Calcium 9.4, Total Bilirubin 0.6, AST 85 H, ALT 87 H, Alkaline Phosphatase 51, Total Protein 8.1, Albumin 4.0, Globulin 4.1 H, Albumin/Globulin Ratio 1.0 L, Lipase 173 06/10/19 14:15: Urine Color Yellow, Urine Appearance Clear, Urine pH 6.5, Ur Specific [place] 1.015, Urine Protein Negative, Urine Glucose (UA) Negative, Urine Ketones Trace, Urine Blood Negative, Urine Nitrate Negative, Urine Bilirubin Negative, Urine Urobilinogen 0.2, Ur Leukocyte Esterase Negative, Urine RBC None, Urine WBC Occasional, Ur Squamous Epith Cells None, Urine Bacteria Trace 06/10/19 14:20: Lactate 0.5 06/11/19 06:18: WBC 4.3 L D, RBC 4.45 L, Hgb 14.4 D, Hct 42.0, MCV 94.4 H, MCH 30.6, MCHC 32.4, RDW 14.1, Plt Count 211, MPV 8.1, Neut % (Auto) 43.6, Lymph % (Auto) 44.1, [place] % (Auto) 10.1 H, Eos % (Auto) 1.9, Baso % (Auto) 0.3, Neut # (Auto) 1.9, Lymph # (Auto) 1.9, [place] # (Auto) 0.4, Eos # (Auto) 0.1, Baso # (Auto) 0.0 06/11/19 06:18: Sodium 134 L, Potassium 3.7, Chloride 102, Carbon Dioxide 26, Anion Gap 9.7, BUN 7, Creatinine 0.85, Estimated Creat Clear 125, Estimated GFR 95, Est GFR ( Amer) 115, Glucose 98, Calcium 8.3 L D I & O for Last 24 hours: Intake & Output 06/08/19 06/09/19 06/10/19 06/11/19 11:59 11:59 11:59 11:59 Intake Total 1938 / 1938 Output Total 1300 / 1300 Balance 638 / 638 Weight 189 lb 3.599 oz - Constitutional no acute distress - *Routine Respiratory Exam Absent: respiratory distress - *Routine Cardiovascular Exam Present: RRR - *Routine Abdominal Exam Present: soft Results - Labs 06/11/19 06:18 06/11/19 06:18 Laboratory Results - last 24 hr 06/10/19 13:00: WBC 9.9, RBC 5.19, Hgb 16.4, Hct 50.5, MCV 97.3 H, MCH 31.6 H, MCHC 32.5, RDW 14.1, Plt Count 274, MPV 8.4, Neut % (Auto) 81.9 H, Lymph % (Auto) 11.5, [place] % (Auto) 6.0, Eos % (Auto) 0.4, Baso % (Auto) 0.2, Neut # (Auto) 8.1 H, Lymph # (Auto) 1.1, [place] # (Auto) 0.6, Eos # (Auto) 0.0, Baso # (Auto) 0.0 06/10/19 13:00: Sodium 136, Potassium 4.6, Chloride 101, Carbon Dioxide 27, Anion Gap 12.6, BUN 8, Creatinine 0.93, Estimated Creat Clear 121, Estimated GFR 86, Est GFR ( Amer) 104, Glucose 100, Calcium 9.4, Total Bilirubin 0.6, AST 85 H, ALT 87 H, Alkaline Phosphatase 51, Total Protein 8.1, Albumin 4.0, Globulin 4.1 H, Albumin/Globulin Ratio 1.0 L, Lipase 173 06/10/19 14:15: Urine Color Yellow, Urine Appearance Clear, Urine pH 6.5, Ur Specific [place] 1.015, Urine Protein Negative, Urine Glucose (UA) Negative, Urine Ketones Trace, Urine Blood Negative, Urine Nitrate Negative, Urine Bilirubin Negative, Urine Urobilinogen 0.2, Ur Leukocyte Esterase Negative, Urine RBC None, Urine WBC Occasional, Ur Squamous Epith Cells None, Urine Bacteria Trace 06/10/19 14:20: Lactate 0.5 06/11/19 06:18: WBC 4.3 L D, RBC 4.45 L, Hgb 14.4 D, Hct 42.0, MCV 94.4 H, MCH 30.6, MCHC 32.4, RDW 14.1, Plt Count 211, MPV 8.1, Neut % (Auto) 43.6, Lymph % (Auto) 44.1, [place] % (Auto) 10.1 H, Eos % (Auto) 1.9, Baso % (Auto) 0.3, Neut # (Auto) 1.9, Lymph # (Auto) 1.9, [place] # (Auto) 0.4, Eos # (Auto) 0.1, Baso # (Auto) 0.0 06/11/19 06:18: Sodium 134 L, Potassium 3.7, Chloride 102, Carbon Dioxide 26, Anion Gap 9.7, BUN 7, Creatinine 0.85, Estimated Creat Clear 125, Estimated GFR 95, Est GFR ( Amer) 115, Glucose 98, Calcium 8.3 L D Assessment and Plan (1) Sigmoid diverticulitis Current visit: Yes Status: Acute Category: Medical Code(s): K57.32 - Diverticulitis of large intestine without perforation or abscess without bleeding Overall doing fairly well with current management. Possible less than 2 cm abscess. No need for acute surgical intervention Continue IV antibiotics for now Serial abdominal exams Follow-up repeat labs
--- NOTE | 2019-06-12 08:29 | Progress Note ---
Internal Medicine - PN: Subj *Date: 06/12/19 *Time: 08:27 Interval history: pt reports inc pain through the night - no vomiting Exam Vital signs and Labs for Last 24 Hours: Temp Pulse Resp BP Pulse Ox 97.7 F 60 17 160/90 H 100 06/12/19 08:22 06/12/19 08:22 06/12/19 08:22 06/12/19 08:22 06/12/19 08:22 I & O for Last 24 hours: Intake & Output 06/09/19 06/10/19 06/11/19 06/12/19 11:59 11:59 11:59 11:59 Intake Total 1938 / 1938 2715 / 2715 Output Total 1300 / 1300 3150 / 3150 Balance 638 / 638 -435 / -435 Weight 189 lb 3.599 oz 189 lb 3.599 oz - Constitutional no acute distress - *Routine HEENT Exam Head: Present: normocephalic Eye: Present: EOMI, PERRL ENT: Present: mucous membranes dry - *Routine Neck Exam Present: supple - *Routine Respiratory Exam Absent: respiratory distress - *Routine Cardiovascular Exam Present: RRR - *Routine Abdominal Exam Present: soft, tenderness - *Routine Extremities Exam Absent: edema - *Routine Skin Exam Present: intact - *Routine Neurological Exam Present: alert, oriented X3, CN II-XII intact - Routine Psychiatric Exam Present: normal affect
--- NOTE | 2019-06-12 09:00 | Progress Note ---
Subjective Narrative: The patient has some increased pain overnight for which she reportedly received some Toradol. He currently "feels a bit better". Exam Vital signs and Labs for Last 24 Hours: Temp Pulse Resp BP Pulse Ox 97.7 F 60 17 160/90 H 100 06/12/19 08:22 06/12/19 08:22 06/12/19 08:22 06/12/19 08:22 06/12/19 08:22 I & O for Last 24 hours: Intake & Output 06/09/19 06/10/19 06/11/19 06/12/19 11:59 11:59 11:59 11:59 Intake Total 1938 / 1938 2715 / 2715 Output Total 1300 / 1300 3150 / 3150 Balance 638 / 638 -435 / -435 Weight 189 lb 3.599 oz 189 lb 3.599 oz - Constitutional no acute distress Comments: The patient currently appears fairly comfortable. - *Routine Respiratory Exam Absent: respiratory distress - *Routine Abdominal Exam Present: soft Progress Note: A&P (1) Sigmoid diverticulitis Status: Acute Assessment and plan: Although the patient did have some increased (episodic) pain overnight, he appears to be clinically improving in general over the past 36 hours. He has remained afebrile stable normal vital signs. He currently appears fairly comfortable. Continue antibiotics. Possible conversion to PO antibiotics in the very near future with discharge home and close outpatient follow-up. Repeat CT scan in approximately 1 week. Current Visit: Yes
[2019-06-12 09:05] LABS: Basophils % 0.3 % (0.1-2.0); Eosinophils # 0.1 K/mm3 (0.0-0.4); Eosinophils % 1.8 % (0.1-12.0); Hematocrit 43.7 % (42.0-52.0); Lymphocytes # 1.5 K/mm3 (0.7-4.5); Lymphocytes % 30.6 % (10-50); Mean Corpuscular Volume 95.5 fl (80-94); Mean Platelet Volume 8.3 fl (7.4-10.4); Monocytes # 0.5 K/mm3 (0.1-1.0); Monocytes % 10.3 % (1.7-9.3); Neutrophils # 2.7 K/mm3 (1.8-7.8); Neutrophils % 56.9 % (37.0-80.0); Platelet Count 205 K/mm3 (142-424); Red Blood Count 4.57 M/mm3 (4.60-6.20); Red Cell Distribution Width 13.9 % (11.5-17.5); White Blood Count 4.8 K/mm3 (4.8-10.8)
--- NOTE | 2019-06-13 07:38 | Progress Note ---
Internal Medicine - PN: Subj *Date: 06/13/19 *Time: 07:38 Exam Vital signs and Labs for Last 24 Hours: Temp Pulse Resp BP Pulse Ox 97.7 F 55 L 17 143/86 H 98 06/13/19 04:00 06/13/19 04:00 06/13/19 04:00 06/13/19 04:00 06/13/19 04:00 Laboratory Results - last 24 hr 06/12/19 08:42: WBC 4.8, RBC 4.57 L, Hgb 14.0 L, Hct 43.7, MCV 95.5 H, MCH 30.5, MCHC 32.0, RDW 13.9, Plt Count 205, MPV 8.3, Neut % (Auto) 56.9, Lymph % (Auto) 30.6, [place] % (Auto) 10.3 H, Eos % (Auto) 1.8, Baso % (Auto) 0.3, Neut # (Auto) 2.7, Lymph # (Auto) 1.5, [place] # (Auto) 0.5, Eos # (Auto) 0.1, Baso # (Auto) 0.0 I & O for Last 24 hours: Intake & Output 06/10/19 06/11/19 06/12/19 06/13/19 23:59 23:59 23:59 23:59 Intake Total 645 / 645 1893 / 1893 2835 / 2835 1591 / 1591 Output Total 4150 / 4150 1400 / 1400 1250 / 1250 Balance 645 / 645 -2257 / -2257 1435 / 1435 341 / 341 Weight 85.814 kg 85.831 kg 85.831 kg 85.474 kg Assessment and Plan (1) Sigmoid diverticulitis Current visit: Yes Status: Acute Category: Medical Code(s): K57.32 - Diverticulitis of large intestine without perforation or abscess without bleeding The patient's infection will respond to the chosen ABx?: Yes Is the patient receiving the right drug, dose, and route?: Yes Could a more targeted ABx be ordered?: No
--- NOTE | 2019-06-13 08:30 | Progress Note ---
Subjective Narrative: The patient states he "feels pretty okay right now". He states that he "had a rough night early on". Seemingly, he has some increased pain at night with no overall change in his clinical status. Exam Vital signs and Labs for Last 24 Hours: Temp Pulse Resp BP Pulse Ox 98.0 F 63 16 158/94 H 94 L 06/13/19 07:48 06/13/19 07:48 06/13/19 07:48 06/13/19 07:48 06/13/19 07:53 Laboratory Results - last 24 hr 06/12/19 08:42: WBC 4.8, RBC 4.57 L, Hgb 14.0 L, Hct 43.7, MCV 95.5 H, MCH 30.5, MCHC 32.0, RDW 13.9, Plt Count 205, MPV 8.3, Neut % (Auto) 56.9, Lymph % (Auto) 30.6, [place] % (Auto) 10.3 H, Eos % (Auto) 1.8, Baso % (Auto) 0.3, Neut # (Auto) 2.7, Lymph # (Auto) 1.5, [place] # (Auto) 0.5, Eos # (Auto) 0.1, Baso # (Auto) 0.0 I & O for Last 24 hours: Intake & Output 06/10/19 06/11/19 06/12/19 06/13/19 11:59 11:59 11:59 11:59 Intake Total 1938 / 1938 2715 / 2715 2671 / 2671 Output Total 1300 / 1300 3350 / 3350 2150 / 2150 Balance 638 / 638 -635 / -635 521 / 521 Weight 189 lb 3.599 oz 189 lb 3.599 oz 188 lb 7 oz - Constitutional no acute distress - *Routine Abdominal Exam Present: soft Progress Note: A&P (1) Sigmoid diverticulitis Status: Acute Assessment and plan: Slowly improving on current regimen. Likely conversion to Augmentin for discharge home with close outpatient follow- up Current Visit: Yes
--- NOTE | 2019-06-13 12:33 | Discharge Summary ---
General - General Admission date:: 06/10/19 Discharge date: 06/13/19 HPI HPI: this is wm who has failed op treatment -pt was seen in the ed-t is here in the ER c/o low mid abdomen pain. Pt seen here in the ER on 05-27-19 and diagnosed with acute diverticulitils. Pt placed on antibiotics and subsequently discharged to home. Pt has not followed up with PCP since being discharged from the ER. Pt is now here c/o persistent pain, nausea, dry heaves for past couple of days, and multiple bouts of diarrhea today. No constipation or blood in stool. No fever, chest pain, sob. Pt has been compliant with antibiotics from ER visit. No other complaints. Hospital Course Hospital Course: pt has been on iv abx with sl improvement - he has ongoing abd pain but no fever and melonie diet and dec wbc- he was seen by surg - see dr rosales note - he will need op abx and follow up with repeat ct - Objective Vital signs: Temp Pulse Resp BP Pulse Ox 98.0 F 63 16 158/94 H 94 L 06/13/19 07:48 06/13/19 07:48 06/13/19 07:48 06/13/19 07:48 06/13/19 07:53 no acute distress - *Routine HEENT Exam Eye: Present: EOMI, PERRL. Absent: conjunctival icterus ENT: Present: mucous membranes dry - *Routine Neck Exam Present: supple - *Routine Respiratory Exam Present: CTA bilaterally - *Routine Cardiovascular Exam Present: RRR, murmur - *Routine Abdominal Exam Present: soft, tenderness. Absent: rebound, guarding - *Routine Extremities Exam Present: full ROM - *Routine Skin Exam Present: intact - *Routine Neurological Exam Present: alert, oriented X3, CN II-XII intact - Routine Psychiatric Exam Present: normal affect DS: Diagnosis - Discharge Diagnosis (1) Sigmoid diverticulitis Status: Acute (2) Tobacco use Status: Acute Discharge Plan - Patient Discharge Instructions ACTIVITY: Continue current activity DIET: continue same diet Patient Instructions: Diverticulitis, DI for Diverticulitis - Follow up Plan Follow up with: Jeremie Rosales MD [Staff Physician] - 1 week Disposition: Home, Self-Nursing Home Medications: Home Medications Medication Instructions Recorded Confirmed Type Hydrocodone/Acetaminophen [[place] 1 each PO Q6HP PRN #10 tab 05/27/19 06/11/19 Rx 5-325 Tablet] Ondansetron [Zofran 4mg ODT] 4 mg PO Q8HP PRN #12 tab.rapdis 05/27/19 06/11/19 Rx metroNIDAZOLE [Flagyl 500mg 500 mg PO TID 06/10/19 06/10/19 History Tablet] Ciprofloxacin HCl [Ciprofloxacin 500 mg PO BID 06/11/19 06/11/19 History 500mg Tab] Amoxicillin/Potassium Clav 1 tab PO Q12H #20 tab 06/13/19 Rx [Augmentin 875-125 Tablet] Nicotine [Nicoderm 21mg/24hr 21 mg TD DAILY #30 patch.td24 06/13/19 Rx patch] Prescriptions/Medication Reconciliation: New Nicotine [Nicoderm 21mg/24hr patch] 21 mg TD DAILY #30 patch.td24 Amoxicillin/Potassium Clav [Augmentin 875-125 Tablet] 1 tab PO Q12H #20 tab Continued Ondansetron [Zofran 4mg ODT] 4 mg PO Q8HP PRN #12 tab.rapdis PRN Reason: Nausea Hydrocodone/Acetaminophen [[place] 5-325 Tablet] 1 each PO Q6HP PRN #10 tab PRN Reason: Pain Discontinued Ciprofloxacin HCl [Ciprofloxacin 500mg Tab] 500 mg PO BID metroNIDAZOLE [Flagyl 500mg Tablet] 500 mg PO TID
== END 2019-06-13 13:25 | disposition home or self-care (01) | DRG 392 ==
LOC: ER 12:44 → 2ND 15:48 → INTOOBSV 16:23 → 2ND 16:24
PROVIDERS: ADMIT Emergency Medicine; ATTEND Emergency Medicine
CPT/HCPCS: 36415; 74177; 80048; 80053; 81001; 83605; 83690; 85025; 96365; 96375; 99285; G0378; J1335; J2405; Q9967

== ENCOUNTER 2019-06-21 09:15 | Inpatient (IN) ==
--- NOTE | 2019-06-21 09:35 | Emergency Department Note ---
ED Disposition Clinical Impression: Diverticulitis Disposition: Admitted as Observation Condition on Discharge: Fair Referrals: Mitchel Call MD [Primary Care Provider] - - Critical Care Critical Care Time: No Attestation: On 06/21/19, the high probability of a clinically significant, sudden or life threatening deterioration of the following system(s) required my full and direct attention, intervention and personal management. The time I documented below is in addition to time spent performing reported procedures but includes the following listed in this critical care notation. Medical Decision Making - Sd Inquiry Pt receiving controlled substance: Yes Sd was queried for this patient: Yes Reference #:: [id number] Risks and benefits of using a controlled substance: were not discussed with pt by me Comment: 7 rxs. last rx 30 lortab 7.5mg on 06/13/19 Vital Signs: 06/21/19 09:24 06/21/19 10:16 06/21/19 11:00 Temperature 97.8 F Temperature Source Oral Pulse Rate [Left Radial] 63 58 L 68 Respiratory Rate 22 21 18 Blood Pressure [Right Arm] 211/122 H 181/95 H 147/92 H Blood Pressure Mean [Right Arm] 151 123 110 Blood Pressure Source [Right Arm] Automatic Cuff Automatic Cuff Automatic Cuff Blood Pressure Position [Right Arm] Sitting Sitting Sitting 02 Sat by Pulse Oximetry 98 100 93 L Oxygen Delivery Method Room Air Room Air Room Air 06/21/19 12:00 Temperature Temperature Source Pulse Rate [Left Radial] 63 Respiratory Rate Blood Pressure [Right Arm] 156/104 H Blood Pressure Mean [Right Arm] 121 Blood Pressure Source [Right Arm] Blood Pressure Position [Right Arm] 02 Sat by Pulse Oximetry 97 Oxygen Delivery Method - Lab Data Lab Results 06/21/19 09:37: WBC 6.4, RBC 5.06, Hgb 15.9, Hct 48.4, MCV 95.6 H, MCH 31.5 H, MCHC 32.9, RDW 13.6, Plt Count 372, MPV 7.5, Neut % (Auto) 70.5, Lymph % (Auto) 21.2, [place] % (Auto) 7.4, Eos % (Auto) 0.7, Baso % (Auto) 0.2, Neut # (Auto) 4.5, Lymph # (Auto) 1.4, [place] # (Auto) 0.5, Eos # (Auto) 0.0, Baso # (Auto) 0.0, ESR 9 06/21/19 09:37: Sodium 139, Potassium 3.5, Chloride 100, Carbon Dioxide 31, Anion Gap 11.5, BUN 10, Creatinine 0.90, Estimated Creat Clear 115, Estimated GFR 89, Est GFR ( Amer) 108, Glucose 101, Calcium 9.0, Total Bilirubin 0.3, AST 29, ALT 40, Alkaline Phosphatase 57, C-Reactive Protein 0.5, Total Protein 7.9, Albumin 3.7, Globulin 4.2 H, Albumin/Globulin Ratio 0.9 L 06/21/19 10:21: Urine Color Yellow, Urine Appearance Clear, Urine pH 7.5, Ur Specific [place] 1.020, Urine Protein Negative, Urine Glucose (UA) Negative, Urine Ketones Negative, Urine Blood Negative, Urine Nitrate Negative, Urine Bilirubin Negative, Urine Urobilinogen 0.2, Ur Leukocyte Esterase Negative, Urin e RBC None, Urine WBC None, Ur Squamous Epith Cells None, Urine Bacteria Trace, Urine Mucus 3+ Result diagrams: 06/21/19 09:37 06/21/19 09:37 Orders (Tests/Meds): ED MEDICATIONS Generic Name Dose Route Start Last Admin Trade Name Freq PRN Reason Stop Dose Admin Nicotine 14 mg 06/22/19 11:36 Nicoderm 14mg/24hrs Patch TD 06/22/19 11:37 DAILY ONE Discontinued Medications Generic Name Dose Route Start Last Admin Trade Name Freq PRN Reason Stop Dose Admin Diatrizoate Meglum/Diatrizoate Sod 30 ml 06/21/19 10:00 06/21/19 10:02 Gastrografin 66%-10% 30ml PO 06/21/19 10:01 30 ml ONCE ONE Administration Hydromorphone HCl 1 mg 06/21/19 09:42 06/21/19 09:59 Dilaudid 2mg/Ml Syringe IV 06/21/19 09:43 1 mg ONCE ONE Administration Ioversol 75 ml 06/21/19 11:58 06/21/19 12:01 Rad-Optiray 350 100ml Vial IV 06/21/19 11:59 75 ml ONCE ONE Administration Protocol Ondansetron HCl 4 mg 06/21/19 09:42 06/21/19 09:59 Zofran 4mg/2ml Vial IV 06/21/19 09:43 4 mg ONCE ONE Administration Sodium Chloride 1,000 ml 06/21/19 09:43 06/21/19 09:59 Sod Chlor 0.9% 1000ml Bag IV 06/21/19 09:44 1,000 ml BOLUS ONE Administration Sodium Chloride 10 ml 06/21/19 11:58 06/21/19 12:01 Rad-Saline Flush 10ml Syringe IV 06/21/19 11:59 10 ml ONCE ONE Administration ORDERS Category Date Time Status CT abdomen pelvis w con Stat Cat Scan 06/21/19 09:43 Taken - Physician Consults Physician Consulted: Bobby Time: 12:48 Reason -: Surgical Eval/Care Comment/Response: Discussed case. Discussed CT results. No surgical intervention warranted. Defers to primary care regarding further antibiotic treatment and disposition. Additional Consult: Jkaub Time: 13:11 Reason -: Admission, Pt condition Comment/Response: Agrees to admit the patient to the hospital. We discussed the patient's clinical information, including history, exam, laboratory and radiology results and ED course. Per hospital procedure, I will write temporary bridge inpatient orders on the patient. Specific orders requested by the admitting physician: Zosyn and Flagyl. Medical Decision Narrative: 12:40 PM: Received call from Dr. Biswas, radiologist. Thickening of sigmoid, 1.3 cm fluid collection adjacent to sigmoid and bladder. No significant change from prior scan. He will be calling the patient back over for more scans through the pelvis in about 15 minutes because contrast had not yet gotten to that area. General Adult HPI - General Chief complaint: Abdominal Pain Stated complaint: HBP, abdominal pain Time Seen by Provider: 06/21/19 09:35 Mode of Arrival: Wheelchair Limitations: No Limitations Description of Symptoms (Recalled from ER Triage Doc. by RN): PT SENT DOWN FROM DR WILLS'S OFFICE WHERE HE WAS HAVING A F/U ON DIVERTICULITIS THAT HE WAS DX WITH A FEW DAYS AGO. PT C/O LOWER ABD PAIN, N/V AND ELEVATED BP - History of Present Illness HPI narrative: Sent from Dr. Wills's office. He was being seen there for follow-up of diverticulitis. He was admitted to the hospital 06/10/2019 through 06/13/2019. Discharged on Flagyl and Hydrocodone/APAP. States that he has never improved. Has continued diffuse suprapubic abdominal pain, dry heaves. Normal bowel movement this morning. Denies fever. Denies urinary symptoms. States that he was told that Dr. Wills's office that he was too sick, and sent to the emergency room. - Related Data Home Medications Medication Instructions Recorded Confirmed metroNIDAZOLE [metroNIDAZOLE 500mg 500 mg PO Q8 06/21/19 06/21/19 Tablet] Previous Rx's Medication Instructions Recorded Hydrocodone/Acetaminophen [[place] 1 each PO Q6HP PRN #10 tab 05/27/19 5-325 Tablet] Ondansetron [Zofran 4mg ODT] 4 mg PO Q8HP PRN #12 tab.rapdis 05/27/19 Amoxicillin/Potassium Clav 1 tab PO Q12H #20 tab 06/13/19 [Augmentin 875-125 Tablet] Nicotine [Nicoderm 21mg/24hr 21 mg TD DAILY #30 patch.td24 06/13/19 patch] lisinopril 10 mg tablet 10 mg PO DAILY #30 tab 06/13/19 Allergies Allergy/AdvReac Type Severity Reaction Status Date / Time iodine [IODINE] Allergy Intermediate I-RASH Verified 06/21/19 09:06 promethazine [From PHENERGAN] Allergy Mild NA-HALLUCIN Verified 06/21/19 09:06 ATIONS [facility] History - Hepatitis A Screen Drug use history?: No High risk sexual behaviors?: No History of sexually transmitted infection?: No Currently employed?: No Childcare worker?: No Do you have indoor plumbing?: Yes Do you have electricity?: Yes Attestation statement:: This patient has been screened for Hepatitis A risk factors. I have reviewed the patient's past medical history: Yes Medical History: Reports:: Hypertension, MRSA Denies:: Cancer, Diabetes Mellitus Type 1, Diabetes Mellitus Type 2, Internal Pacemaker, Pulmonary Embolism, Seizures, Transient Ischemic Attacks (TIA) Comment: Diverticulitis Other Surgeries: Yes: Colonoscopy. No: Pacemaker Amputation: No Fractures: No - Social History Smoking Status: Current every day smoker Tobacco Type: cigarettes # Packs/Day (cigarettes): 1 Alcohol Intake: never Alcohol Intake Frequency:: 0-2 drinks per day Substance Use Type: marijuana Occupational Status: unemployed Housing: house Household Members: significant other Family Hx:: Cancer, Heart Attack ROS Obtained: Yes All systems reviewed & no additional complaints - Constitutional Constitutional: Denies fever(s) - Cardiovascular Cardiovascular: Denies chest pain - Respiratory Respiratory: No dyspnea - Gastrointestinal Gastrointestingal: Reports: abdominal pain, nausea. Denies: constipation, diarrhea, vomiting - Genitourinary Male Genitourinary: Denies difficulty urinating Physical Exam - General General appearance: alert, in distress (Pain, moaning) - Head Head exam: atraumatic, normocephalic - Eye Eye exam: Present: normal appearance, EOMI - ENT ENT exam: Present: mucous membranes moist - Neck Neck exam: Present: normal inspection, trachea midline - Chest Chest inspection: Present: normal inspection, symmetric chest wall rise - Respiratory Respiratory exam: Present: normal lung sounds bilaterally. Absent: respiratory distress - Cardiovascular Cardiovascular exam: Present: regular rate, normal rhythm, normal heart sounds - Abdominal Exam Abdominal exam: Present: soft, tenderness, normal bowel sounds. Absent: distention, guarding, rebound, rigidity Abdominal tenderness: Present: RLQ, LLQ, suprapubic - Extremities Exam Extremities exam: Present: normal inspection - Neurological Exam Neurological exam: Present: alert, oriented X3 - Psychiatric Psychiatric exam: Present: anxious - Skin Skin exam: Present: warm, dry
[2019-06-21 09:54] LABS: Basophils % 0.2 % (0.1-2.0); Eosinophils % 0.7 % (0.1-12.0); Hematocrit 48.4 % (42.0-52.0); Hemoglobin 15.9 g/dL (14.1-18.0); Lymphocytes # 1.4 K/mm3 (0.7-4.5); Lymphocytes % 21.2 % (10-50); Mean Corpuscular HGB Conc 32.9 g/dL (31.8-35.4); Mean Corpuscular Volume 95.6 fl (80-94); Mean Platelet Volume 7.5 fl (7.4-10.4); Monocytes # 0.5 K/mm3 (0.1-1.0); Monocytes % 7.4 % (1.7-9.3); Neutrophils # 4.5 K/mm3 (1.8-7.8); Neutrophils % 70.5 % (37.0-80.0); Platelet Count 372 K/mm3 (142-424); Red Blood Count 5.06 M/mm3 (4.60-6.20); Red Cell Distribution Width 13.6 % (11.5-17.5); White Blood Count 6.4 K/mm3 (4.8-10.8)
[2019-06-21 10:11] LABS: Albumin Level 3.7 gm/dL (3.4-5.0); Albumin/Globulin Ratio 0.9 (1.1-1.8); Anion Gap 11.5 mEq/L (5-15); Bilirubin,Total 0.3 mg/dL (0.2-1.0); C-Reactive Protein 0.5 mg/dL (0.0-0.9); Globulin 4.2 gm/dl (1.3-3.2); Total Protein,Serum 7.9 gm/dL (6.4-8.2)
[2019-06-21 10:18] LABS: Erythrocyte Sedimentation Rate 9 mm/hr (0-20)
[2019-06-21 10:29] LABS: Microscopic, Urine URINE MICROSCOPIC (MICROSCOPIC)
[2019-06-21 10:31] LABS: Appearance,Urine CLEAR (Clear); Bilirubin,Urine Negative (Negative); Blood, Urine Negative (Negative); Color,Urine YELLOW (Yellow); Glucose,Urine (UA) Negative (Negative); Ketones,Urine Negative (Negative); Leukocyte Esterase,Urine Negative (Negative); PH,Urine 7.5 (5.0-8.5); Protein,Urine Negative (Negative); Urobilinogen,Urine 0.2 EU/dl (0.2)
[2019-06-21 10:40] LABS: Bacteria,Urine Trace /lpf; Mucus,Urine 3+ /lpf
--- NOTE | 2019-06-21 13:33 | Pharmacy Consult Notes ---
[facility] Pharmacy VTE Monitoring - Patient Demographics Admission date: 06/21/19 Report Date: 06/21/19 Time: 13:32 Allergies/Adverse Reactions: Patient Allergies iodine [IODINE] Allergy (Intermediate, Verified 06/21/19 09:06) I-RASH promethazine [From PHENERGAN] Allergy (Mild, Verified 06/21/19 09:06) NA-HALLUCINATIONS Height: 1.8 m Weight: 83.915 kg Patient Problems: Current Active Problems Diverticulitis (Acute) - VTE Risk Labs: VTE Related Lab Results Hgb 15.9 g/dL (14.1-18.0) 06/21/19 09:37 Hct 48.4 % (42.0-52.0) 06/21/19 09:37 Plt Count 372 K/mm3 (142-424) 06/21/19 09:37 BUN 10 mg/dL (7-18) 06/21/19 09:37 Creatinine 0.90 mg/dL (0.70-1.30) 06/21/19 09:37 Estimated Creat Clear 115 mL/min (50-200) 06/21/19 09:37 - Prophylaxis VTE Prophylaxis Ordered?: Yes Types of VTE Prophylaxis: TEDS Knee High Location of Applied Device: Bilateral Lower Extremeties - VTE Diagnosis Confirmed Treatment or plan recommended: Continue Current Treatment
--- NOTE | 2019-06-21 14:37 | Consult Report ---
*Admission Date: 06/21/19 *Reason for consult:: Diverticulitis *History of present illness: This is a 53-year-old gentleman who was recently diagnosed with recurrent/persistent diverticulitis. He was placed on antibiotics and discharged with close outpatient follow-up. He was to be seen in clinic today; however, he developed significant/increasing abdominal pain and was found to be hypertensive. He was sent to the emergency department for further evaluation and management where repeat blood pressure evaluation revealed improvement. He continued to have fairly severe abdominal pain and a repeat CT scan revealed changes consistent with stable diverticulitis. The patient was first diagnosed with diverticulitis in August 2018. Recurrent abdominal pain with radiographic evidence of diverticulitis was noted in February of this year and now again in May of this year. Review of Systems - Constitutional Denies excessive sweating - Eyes Denies change in vision - ENT Denies change in voice - *Cardiovascular Denies chest pain - *Respiratory Denies cough - *Gastrointestinal Reports abdominal pain - *Genitourinary Denies painful urination - *Musculoskeletal Denies neck pain - Integumentary/Breasts Denies bleeding lesions - *Neurologic Denies abnormal movements - Psychiatric Denies anxiety - Endocrine Denies cold intolerance - Hematologic/Lymphatic Denies easy bleeding - Allergic/Immunologic Denies GI upset with certain foods [facility] History Medical History: Reports:: Hypertension, MRSA Denies:: Cancer, Diabetes Mellitus Type 1, Diabetes Mellitus Type 2, Internal Pacemaker, Pulmonary Embolism, Seizures, Transient Ischemic Attacks (TIA) *Have you ever received a pneumonia vaccine?: Yes *Have you received a flu vaccine this season?: Yes Other Surgeries: Yes: Colonoscopy. No: Pacemaker Amputation: No Fractures: No - *Social History Smoking Status: Current every day smoker Tobacco Type: cigarettes # Packs/Day (cigarettes): 1 Alcohol Intake: never Alcohol Intake Frequency:: 0-2 drinks per day Substance Use Type: marijuana *Occupational Status:: unemployed Housing: house Household Members: significant other *Travel in the last 8 weeks: None Family Hx:: Cancer, Heart Attack Meds Home Medications Medication Instructions Recorded Confirmed Type Hydrocodone/Acetaminophen [[place] 1 each PO Q6HP PRN #10 tab 05/27/19 06/21/19 Rx 5-325 Tablet] Ondansetron [Zofran 4mg ODT] 4 mg PO Q8HP PRN #12 tab.rajat 05/27/19 06/21/19 Rx Amoxicillin/Potassium Clav 1 tab PO Q12H #20 tab 06/13/19 06/21/19 Rx [Augmentin 875-125 Tablet] Nicotine [Nicoderm 21mg/24hr 21 mg TD DAILY #30 patch.td24 06/13/19 06/21/19 Rx patch] lisinopril 10 mg tablet 10 mg PO DAILY #30 tab 06/13/19 06/21/19 Rx metroNIDAZOLE [metroNIDAZOLE 500mg 500 mg PO Q8 06/21/19 06/21/19 History Tablet] Allergies Allergy/AdvReac Type Severity Reaction Status Date / Time iodine [IODINE] Allergy Intermediate I-RASH Verified 06/21/19 09:06 promethazine [From PHENERGAN] Allergy Mild NA-HALLUCIN Verified 06/21/19 09:06 ATIONS Exam Vital signs and Labs for Last 24 Hours: Temp Pulse Resp BP Pulse Ox 98.4 F 82 20 132/87 97 06/21/19 14:21 06/21/19 14:21 06/21/19 14:21 06/21/19 14:21 06/21/19 14:00 Laboratory Results - last 24 hr 06/21/19 09:37: WBC 6.4, RBC 5.06, Hgb 15.9, Hct 48.4, MCV 95.6 H, MCH 31.5 H, MCHC 32.9, RDW 13.6, Plt Count 372, MPV 7.5, Neut % (Auto) 70.5, Lymph % (Auto) 21.2, [place] % (Auto) 7.4, Eos % (Auto) 0.7, Baso % (Auto) 0.2, Neut # (Auto) 4.5, Lymph # (Auto) 1.4, [place] # (Auto) 0.5, Eos # (Auto) 0.0, Baso # (Auto) 0.0, ESR 9 06/21/19 09:37: Sodium 139, Potassium 3.5, Chloride 100, Carbon Dioxide 31, Anion Gap 11.5, BUN 10, Creatinine 0.90, Estimated Creat Clear 115, Estimated GFR 89, Est GFR ( Amer) 108, Glucose 101, Calcium 9.0, Total Bilirubin 0.3, AST 29, ALT 40, Alkaline Phosphatase 57, C-Reactive Protein 0.5, Total Protein 7.9, Albumin 3.7, Globulin 4.2 H, Albumin/Globulin Ratio 0.9 L 06/21/19 10:21: Urine Color Yellow, Urine Appearance Clear, Urine pH 7.5, Ur Specific [place] 1.020, Urine Protein Negative, Urine Glucose (UA) Negative, Urine Ketones Negative, Urine Blood Negative, Urine Nitrate Negative, Urine Bilirubin Negative, Urine Urobilinogen 0.2, Ur Leukocyte Esterase Negative, Urine RBC None, Urine WBC None, Ur Squamous Epith Cells None, Urine Bacteria Trace, Urine Mucus 3+ I & O for Last 24 hours: Intake & Output 06/19/19 06/20/19 06/21/19 06/22/19 11:59 11:59 11:59 11:59 Weight 185 lb - Constitutional cooperative - *Routine Cardiovascular Exam Present: RRR - *Routine Abdominal Exam Present: tenderness Results - Labs 06/21/19 09:37 06/21/19 09:37 Laboratory Results - last 24 hr 06/21/19 09:37: WBC 6.4, RBC 5.06, Hgb 15.9, Hct 48.4, MCV 95.6 H, MCH 31.5 H, MCHC 32.9, RDW 13.6, Plt Count 372, MPV 7.5, Neut % (Auto) 70.5, Lymph % (Auto) 21.2, [place] % (Auto) 7.4, Eos % (Auto) 0.7, Baso % (Auto) 0.2, Neut # (Auto) 4.5, Lymph # (Auto) 1.4, [place] # (Auto) 0.5, Eos # (Auto) 0.0, Baso # (Auto) 0.0, ESR 9 06/21/19 09:37: Sodium 139, Potassium 3.5, Chloride 100, Carbon Dioxide 31, Anion Gap 11.5, BUN 10, Creatinine 0.90, Estimated Creat Clear 115, Estimated GFR 89, Est GFR ( Amer) 108, Glucose 101, Calcium 9.0, Total Bilirubin 0.3, AST 29, ALT 40, Alkaline Phosphatase 57, C-Reactive Protein 0.5, Total Protein 7.9, Albumin 3.7, Globulin 4.2 H, Albumin/Globulin Ratio 0.9 L 06/21/19 10:21: Urine Color Yellow, Urine Appearance Clear, Urine pH 7.5, Ur Specific [place] 1.020, Urine Protein Negative, Urine Glucose (UA) Negative, U rine Ketones Negative, Urine Blood Negative, Urine Nitrate Negative, Urine Bilirubin Negative, Urine Urobilinogen 0.2, Ur Leukocyte Esterase Negative, Urine RBC None, Urine WBC None, Ur Squamous Epith Cells None, Urine Bacteria Trace, Urine Mucus 3+ Assessment and Plan (1) Diverticulitis Problem details: Discharged with PO abx and zofran Current visit: Yes Status: Acute Category: Medical Code(s): K57.92 - Diverticulitis of intestine, part unspecified, without perforation or abscess without bleeding Recurrent/persistent disease beginning in August of last year. Seemingly, he has felt outpatient management with p.o. antibiotics as he has had a severe increase in pain. He remains afebrile and his vital signs are now stable. He does not have an elevated white blood cell count and his CT scan from earlier today does not show worsening of his diverticulitis. A small collection is not amenable to drainage and is in general not of significant enough size to target. IV antibiotics Serial abdominal exams I do not recommend emergent surgical intervention; however, the possibility of fairly urgent resection certainly exists If he is able to improve with IV antibiotics, it is preferable to perform colonoscopy prior to any planned surgical intervention As he has fairly severe and persistent/recurrent symptomatology...resection (again, hopefully in the elective setting) is warranted
--- NOTE | 2019-06-21 20:42 | History & Physical Report ---
*Admission Date: 06/21/19 *Chief complaint: abd pain *History of present illness: this wm who was recently treated for diverticulitis - pt had been doing ok but has inc pain and not felt well and was seen as op in dr krueger office and then in the ed and was admitted for ivf and abx [facility] History I have reviewed the patient's past medical history: Yes Medical History: Reports:: Hypertension, MRSA Denies:: Cancer, Diabetes Mellitus Type 1, Diabetes Mellitus Type 2, Internal Pacemaker, Pulmonary Embolism, Seizures, Transient Ischemic Attacks (TIA) *Have you ever received a pneumonia vaccine?: Yes *Have you received a flu vaccine this season?: Yes Other Surgeries: Yes: Colonoscopy. No: Pacemaker Amputation: No Fractures: No - *Social History Educational Level: Completed GED/General Educational Development Smoking Status: Current every day smoker Tobacco Type: cigarettes # Packs/Day (cigarettes): 1 Alcohol Intake: current Alcohol Intake Frequency:: holidays/special occasions only Substance Use Type: marijuana *Occupational Status:: unemployed Housing: house Household Members: significant other *Travel in the last 8 weeks: None - Psychiatric History Expresses thoughts of harming self/others: None Suicide Plan Description: No Plan Family Hx:: Cancer, Heart Attack Review of Systems - Review of Systems Review of systems:: pertinent systems reviewed and negative unless documented below - Constitutional Reports fever(s) - Eyes Denies change in vision - ENT Denies sore throat - *Cardiovascular Denies chest pain at rest - *Respiratory Denies cough - *Gastrointestinal Reports abdominal pain, Reports nausea, Reports vomiting - *Genitourinary Denies blood in urine - *Musculoskeletal Denies joint pain - Integumentary/Breasts Denies rash - *Neurologic Denies abnormal movements - Psychiatric Denies anxiety Meds Home Medications Medication Instructions Recorded Confirmed Type Nicotine [Nicoderm 21mg/24hr 21 mg TD DAILY #30 patch.td24 06/13/19 06/21/19 Rx patch] Lisinopril [Lisinopril 10mg Tab] 10 mg PO DAILY 06/22/19 06/22/19 History Allergies Allergy/AdvReac Type Severity Reaction Status Date / Time iodine [IODINE] AdvReac Mild I-RASH Verified 06/21/19 15:33 promethazine [From PHENERGAN] AdvReac Mild NA-HALLUCIN Verified 06/21/19 15:33 ATIONS Exam Vital signs and Labs for Last 24 Hours: Temp Pulse Resp BP Pulse Ox 97.9 F 59 L 22 159/91 H 96 06/21/19 20:00 06/21/19 20:00 06/21/19 20:00 06/21/19 20:00 06/21/19 20:00 Laboratory Results - last 24 hr 06/21/19 09:37: WBC 6.4, RBC 5.06, Hgb 15.9, Hct 48.4, MCV 95.6 H, MCH 31.5 H, MCHC 32.9, RDW 13.6, Plt Count 372, MPV 7.5, Neut % (Auto) 70.5, Lymph % (Auto) 21.2, [place] % (Auto) 7.4, Eos % (Auto) 0.7, Baso % (Auto) 0.2, Neut # (Auto) 4.5, Lymph # (Auto) 1.4, [place] # (Auto) 0.5, Eos # (Auto) 0.0, Baso # (Auto) 0.0, ESR 9 06/21/19 09:37: Sodium 139, Potassium 3.5, Chloride 100, Carbon Dioxide 31, Anion Gap 11.5, BUN 10, Creatinine 0.90, Estimated Creat Clear 115, Estimated GFR 89, Est GFR ( Amer) 108, Glucose 101, Calcium 9.0, Total Bilirubin 0.3, AST 29, ALT 40, Alkaline Phosphatase 57, C-Reactive Protein 0.5, Total Protein 7.9, Albumin 3.7, Globulin 4.2 H, Albumin/Globulin Ratio 0.9 L 06/21/19 10:21: Urine Color Yellow, Urine Appearance Clear, Urine pH 7.5, Ur Specific [place] 1.020, Urine Protein Negative, Urine Glucose (UA) Negative, Urine Ketones Negative, Urine Blood Negative, Urine Nitrate Negative, Urine Bilirubin Negative, Urine Urobilinogen 0.2, Ur Leukocyte Esterase Negative, Urine RBC None, Urine WBC None, Ur Squamous Epith Cells None, Urine Bacteria Trace, Urine Mucus 3+ I & O for Last 24 hours: Intake & Output 06/19/19 06/20/19 06/21/19 06/22/19 11:59 11:59 11:59 11:59 Weight 185 lb 193 lb 6 oz - Constitutional no acute distress - *Routine HEENT Exam Head: Present: normocephalic Eye: Present: EOMI, PERRL. Absent: conjunctival icterus ENT: Present: mucous membranes dry - *Routine Neck Exam Present: supple. Absent: JVD - *Routine Respiratory Exam Present: CTA bilaterally - *Routine Cardiovascular Exam Present: RRR. Absent: murmur - *Routine Abdominal Exam Present: soft, tenderness - *Routine Extremities Exam Present: full ROM - *Routine Skin Exam Present: intact - *Routine Neurological Exam Present: alert, oriented X3, CN II-XII intact - Routine Psychiatric Exam Present: normal affect Assessment and Plan (1) Diverticulitis Problem details: Discharged with PO abx and zofran Current visit: Yes Status: Acute Category: Medical Code(s): K57.92 - Diverticulitis of intestine, part unspecified, without perforation or abscess without bleeding (2) Tobacco use Current visit: No Status: Acute Category: Medical Code(s): Z72.0 - Tobacco use (3) HTN (hypertension) Current visit: No Status: Acute Qualifiers: Hypertension type: essential hypertension Qualified Code(s): I10 - Essential (primary) hypertension Category: Medical Code(s): I10 - Essential (primary) hypertension
--- NOTE | 2019-06-22 06:35 | Progress Note ---
Subjective Narrative: The patient is currently sleeping. Per nursing, he had a "okay night overall". Exam Vital signs and Labs for Last 24 Hours: Temp Pulse Resp BP Pulse Ox 97.9 F 66 18 151/89 H 97 06/22/19 04:00 06/22/19 04:00 06/22/19 04:00 06/22/19 04:00 06/22/19 04:00 Laboratory Results - last 24 hr 06/21/19 09:37: WBC 6.4, RBC 5.06, Hgb 15.9, Hct 48.4, MCV 95.6 H, MCH 31.5 H, MCHC 32.9, RDW 13.6, Plt Count 372, MPV 7.5, Neut % (Auto) 70.5, Lymph % (Auto) 21.2, [place] % (Auto) 7.4, Eos % (Auto) 0.7, Baso % (Auto) 0.2, Neut # (Auto) 4.5, Lymph # (Auto) 1.4, [place] # (Auto) 0.5, Eos # (Auto) 0.0, Baso # (Auto) 0.0, ESR 9 06/21/19 09:37: Sodium 139, Potassium 3.5, Chloride 100, Carbon Dioxide 31, Anion Gap 11.5, BUN 10, Creatinine 0.90, Estimated Creat Clear 115, Estimated GFR 89, Est GFR ( Amer) 108, Glucose 101, Calcium 9.0, Total Bilirubin 0.3, AST 29, ALT 40, Alkaline Phosphatase 57, C-Reactive Protein 0.5, Total Protein 7.9, Albumin 3.7, Globulin 4.2 H, Albumin/Globulin Ratio 0.9 L 06/21/19 10:21: Urine Color Yellow, Urine Appearance Clear, Urine pH 7.5, Ur Specific [place] 1.020, Urine Protein Negative, Urine Glucose (UA) Negative, Urine Ketones Negative, Urine Blood Negative, Urine Nitrate Negative, Urine Bilirubin Negative, Urine Urobilinogen 0.2, Ur Leukocyte Esterase Negative, Urine RBC None, Urine WBC None, Ur Squamous Epith Cells None, Urine Bacteria Trace, Urine Mucus 3+ I & O for Last 24 hours: Intake & Output 06/19/19 06/20/19 06/21/19 06/22/19 11:59 11:59 11:59 11:59 Intake Total 350 / 350 Balance 350 / 350 Weight 185 lb 194 lb 1 oz - Constitutional no acute distress - *Routine Respiratory Exam Absent: respiratory distress - *Routine Cardiovascular Exam Present: RRR Progress Note: A&P (1) Diverticulitis Problem details: Discharged with PO abx and zofran Status: Acute Assessment and plan: Complicated/recurrent/persistent diverticulitis with possible progressive involvement of bladder wall (also concern for potential primary bladder lesion) Recommendations: Continue IV abx (? PICC) Urology consultation (either at [facility] or at tertiary facility) secondary to either primary bladder lesion or progressive involvement of diverticulitis with bladder wall/pending fistula. Further/definitive management at tertiary care facility (due to the likelihood of complex involvement of bladder). Current Visit: Yes
--- NOTE | 2019-06-22 12:07 | Progress Note ---
Internal Medicine - PN: Subj *Date: 06/23/19 *Time: 06:14 Interval history: doing some better today - discussed ct finding with pt Exam Vital signs and Labs for Last 24 Hours: Temp Pulse Resp BP Pulse Ox 98.8 F 56 L 16 143/88 H 95 06/22/19 08:00 06/22/19 08:00 06/22/19 08:00 06/22/19 08:00 06/22/19 08:00 I & O for Last 24 hours: Intake & Output 06/20/19 06/21/19 06/22/19 06/23/19 11:59 11:59 11:59 11:59 Intake Total 1110 / 1110 Balance 1110 / 1110 Weight 185 lb 194 lb 1 oz - Constitutional no acute distress - *Routine HEENT Exam Head: Present: normocephalic Eye: Present: EOMI, PERRL ENT: Present: mucous membranes dry - *Routine Neck Exam Present: full ROM - *Routine Respiratory Exam Present: CTA bilaterally - *Routine Cardiovascular Exam Present: RRR - *Routine Abdominal Exam Present: soft - *Routine Extremities Exam Present: full ROM - *Routine Skin Exam Present: intact - *Routine Neurological Exam Present: alert, oriented X3 - Routine Psychiatric Exam Present: normal affect Assessment and Plan (1) Diverticulitis Problem details: Discharged with PO abx and zofran Current visit: Yes Status: Acute Category: Medical Code(s): K57.92 - Diverticulitis of intestine, part unspecified, without perforation or abscess without bleeding
[2019-06-23 08:00] LABS: Basophils % 0.3 % (0.1-2.0); Eosinophils # 0.1 K/mm3 (0.0-0.4); Eosinophils % 1.5 % (0.1-12.0); Hematocrit 43.9 % (42.0-52.0); Hemoglobin 14.2 g/dL (14.1-18.0); Lymphocytes # 1.8 K/mm3 (0.7-4.5); Lymphocytes % 35.1 % (10-50); Mean Corpuscular HGB Conc 32.4 g/dL (31.8-35.4); Mean Corpuscular Volume 96.5 fl (80-94); Mean Platelet Volume 7.6 fl (7.4-10.4); Monocytes # 0.4 K/mm3 (0.1-1.0); Monocytes % 7.9 % (1.7-9.3); Neutrophils # 2.8 K/mm3 (1.8-7.8); Neutrophils % 55.2 % (37.0-80.0); Platelet Count 310 K/mm3 (142-424); Red Blood Count 4.55 M/mm3 (4.60-6.20); Red Cell Distribution Width 13.4 % (11.5-17.5)
[2019-06-23 08:03] LABS: Anion Gap 7.8 mEq/L (5-15); Calcium 8.5 mg/dL (8.5-10.1)
--- NOTE | 2019-06-23 08:26 | Progress Note ---
Subjective Narrative: Patient complains of ongoing pain. It seems to be mostly across the beltline region with some pains in the upper abdomen. Exam Vital signs and Labs for Last 24 Hours: Temp Pulse Resp BP Pulse Ox 97.9 F 102 H 20 127/88 98 06/23/19 08:00 06/23/19 08:00 06/23/19 08:00 06/23/19 08:00 06/23/19 08:00 Laboratory Results - last 24 hr 06/23/19 07:35: WBC 5.0, RBC 4.55 L, Hgb 14.2, Hct 43.9, MCV 96.5 H, MCH 31.2, MCHC 32.4, RDW 13.4, Plt Count 310, MPV 7.6, Neut % (Auto) 55.2, Lymph % (Auto) 35.1, [place] % (Auto) 7.9, Eos % (Auto) 1.5, Baso % (Auto) 0.3, Neut # (Auto) 2.8, Lymph # (Auto) 1.8, [place] # (Auto) 0.4, Eos # (Auto) 0.1, Baso # (Auto) 0.0 06/23/19 07:35: Sodium 138, Potassium 3.8, Chloride 103, Carbon Dioxide 31, Anion Gap 7.8, BUN 4 L D, Creatinine 0.93, Estimated Creat Clear 117, Estimated GFR 86, Est GFR ( Amer) 104, Glucose 98, Calcium 8.5 I & O for Last 24 hours: Intake & Output 06/20/19 06/21/19 06/22/19 06/23/19 11:59 11:59 11:59 11:59 Intake Total 1210 / 1210 2650 / 2650 Balance 1210 / 1210 2650 / 2650 Weight 185 lb 194 lb 1 oz 194 lb 3 oz - *Routine Abdominal Exam Present: soft Comments: He has no guarding or rebound. Progress Note: A&P (1) Diverticulitis Problem details: Discharged with PO abx and zofran Status: Acute Current Visit: Yes Assessment and Plan for All Diagnoses:: He has refractory diverticulitis. There is some possible bladder involvement. Recommendations would be for ultimate urology and colorectal surgery involvement
--- NOTE | 2019-06-23 09:59 | Discharge Summary ---
General - General Admission date:: 06/21/19 Discharge date: 06/23/19 HPI HPI: this wm who was recently treated for diverticulitis - pt had been doing ok but has inc pain and not felt well and was seen as op in dr krueger office and then in the ed and was admitted for ivf and abx Hospital Course Hospital Course: pt has continued to have abd pain with dec po intake - he was seen by surg - rther review of the CT scan does not show definitive evidence of primary worsening of diverticulitis; however, bladder thickening has worsened and concerns regarding possible primary bladder tumor have been raised. I recommend urology consultation for possible cystoscopy. In addition I do believe that the patient should undergo intervention at a tertiary care center secondary to the likely need for a combined general surgery/urologic procedure. This is a 53-year-old gentleman who was recently diagnosed with recurrent/persistent diverticulitis. He was placed on antibiotics and discharged with close outpatient follow-up. He was to be seen in clinic today; however, he developed significant/increasing abdominal pain and was found to be hypertensive. He was sent to the emergency department for further evaluation and management where repeat blood pressure evaluation revealed improvement. He continued to have fairly severe abdominal pain and a repeat CT scan revealed changes consistent with stable diverticulitis. The patient was first diagnosed with diverticulitis in August 2018. Recurrent abdominal pain with radiographic evidence of diverticulitis was noted in February of this year and now again in May of this year. pt was discussed with - gi surg team and will be transferred as pt has complex case Objective Vital signs: Temp Pulse Resp BP Pulse Ox 97.9 F 102 H 20 127/88 98 06/23/19 08:00 06/23/19 08:00 06/23/19 08:00 06/23/19 08:00 06/23/19 08:00 no acute distress - *Routine HEENT Exam Head: Present: normocephalic Eye: Present: EOMI, PERRL ENT: Present: mucous membranes dry - *Routine Neck Exam Present: supple - *Routine Respiratory Exam Present: CTA bilaterally - *Routine Cardiovascular Exam Present: RRR. Absent: murmur - *Routine Abdominal Exam Present: soft, tenderness - *Routine Extremities Exam Present: full ROM - *Routine Skin Exam Present: intact - *Routine Neurological Exam Present: alert, oriented X3, CN II-XII intact - Routine Psychiatric Exam Present: normal affect Results Labs on day of discharge: Labs from last 24 hours 06/23/19 06/23/19 07:35 07:35 WBC 5.0 RBC 4.55 L Hgb 14.2 Hct 43.9 MCV 96.5 H MCH 31.2 MCHC 32.4 RDW 13.4 Plt Count 310 MPV 7.6 Neut % (Auto) 55.2 Lymph % (Auto) 35.1 [place] % (Auto) 7.9 Eos % (Auto) 1.5 Baso % (Auto) 0.3 Neut # (Auto) 2.8 Lymph # (Auto) 1.8 [place] # (Auto) 0.4 Eos # (Auto) 0.1 Baso # (Auto) 0.0 Sodium 138 Potassium 3.8 Chloride 103 Carbon Dioxide 31 Anion Gap 7.8 BUN 4 L D Creatinine 0.93 Estimated Creat Clear 117 Estimated GFR 86 Est GFR ( Amer) 104 Glucose 98 Calcium 8.5 DS: Diagnosis - Discharge Diagnosis (1) Diverticulitis Status: Acute Problem details: Discharged with PO abx and zofran Discharge Plan - Patient Discharge Instructions ACTIVITY: Continue current activity DIET: NPO Patient Instructions: Gallstones, DI for Diverticulitis - Follow up Plan Disposition: Xfer Short-Term Hosp Home Medications: Home Medications Medication Instructions Recorded Confirmed Type Nicotine [Nicoderm 21mg/24hr 21 mg TD DAILY #30 patch.td24 06/13/19 06/21/19 Rx patch] Lisinopril [Lisinopril 10mg Tab] 10 mg PO DAILY 06/22/19 06/22/19 History Prescriptions/Medication Reconciliation: Continued Nicotine [Nicoderm 21mg/24hr patch] 21 mg TD DAILY #30 patch.td24 Lisinopril [Lisinopril 10mg Tab] 10 mg PO DAILY - Problem Reconciliation Problems Reviewed?: Yes
--- NOTE | 2019-06-23 13:53 | Consult Report ---
*Admission Date: 06/21/19 *Reason for consult:: CT finding of thickened bladder. *History of present illness: Patient is a 53-year-old white male admitted with diverticulitis. He has a long history of diverticulitis and recent CT scan shows some bladder wall thickening but no evidence of fistulous formation. There is a small hypodensity which could be a small abscess per the radiologist and a microperforation. Patient denies any pneumaturia or hematuria. Does have some occasional dysuria with urinary frequency and nocturia 2-3 times. His urine showed no evidence of blood but there was mucus present. Patient has had several CT scans over the last couple of years and most recent one shows some increased thickening of the urinary bladder wall along the superior aspect toward the left side. A per sistent small fluid collection is present in this area of thickening is about 1 cm in size. Patient's white count and creatinine are normal. Patient states he has been transferred referred to for his diverticulitis today or tomorrow. [facility] History Medical History: Reports:: Hypertension, MRSA Denies:: Cancer, Diabetes Mellitus Type 1, Diabetes Mellitus Type 2, Internal Pacemaker, Pulmonary Embolism, Seizures, Transient Ischemic Attacks (TIA) *Have you ever received a pneumonia vaccine?: Yes *Have you received a flu vaccine this season?: Yes Other Surgeries: Yes: Colonoscopy. No: Pacemaker Amputation: No Fractures: No - *Social History Educational Level: Completed GED/General Educational Development Smoking Status: Current every day smoker Tobacco Type: cigarettes # Packs/Day (cigarettes): 1 Alcohol Intake: current Alcohol Intake Frequency:: holidays/special occasions only Substance Use Type: marijuana *Occupational Status:: unemployed Housing: house Household Members: significant other *Travel in the last 8 weeks: None - Psychiatric History Expresses thoughts of harming self/others: None Suicide Plan Description: No Plan Family Hx:: Cancer, Heart Attack Review of Systems - Review of Systems Review of systems:: pertinent systems reviewed and negative unless documented below - *Neurologic Denies abnormal movements Meds Home Medications Medication Instructions Recorded Confirmed Type Nicotine [Nicoderm 21mg/24hr 21 mg TD DAILY #30 patch.td24 06/13/19 06/21/19 Rx patch] Lisinopril [Lisinopril 10mg Tab] 10 mg PO DAILY 06/22/19 06/22/19 History Allergies Allergy/AdvReac Type Severity Reaction Status Date / Time iodine [IODINE] AdvReac Mild I-RASH Verified 06/21/19 15:33 promethazine [From PHENERGAN] AdvReac Mild NA-HALLUCIN Verified 06/21/19 15:33 ATIONS Exam Vital signs and Labs for Last 24 Hours: Temp Pulse Resp BP Pulse Ox 97.9 F 102 H 20 127/88 98 06/23/19 08:00 06/23/19 08:00 06/23/19 08:00 06/23/19 08:00 06/23/19 08:00 Laboratory Results - last 24 hr 06/23/19 07:35: WBC 5.0, RBC 4.55 L, Hgb 14.2, Hct 43.9, MCV 96.5 H, MCH 31.2, MCHC 32.4, RDW 13.4, Plt Count 310, MPV 7.6, Neut % (Auto) 55.2, Lymph % (Auto) 35.1, [place] % (Auto) 7.9, Eos % (Auto) 1.5, Baso % (Auto) 0.3, Neut # (Auto) 2.8, Lymph # (Auto) 1.8, [place] # (Auto) 0.4, Eos # (Auto) 0.1, Baso # (Auto) 0.0 06/23/19 07:35: Sodium 138, Potassium 3.8, Chloride 103, Carbon Dioxide 31, Anion Gap 7.8, BUN 4 L D, Creatinine 0.93, Estimated Creat Clear 117, Estimated GFR 86, Est GFR ( Amer) 104, Glucose 98, Calcium 8.5 I & O for Last 24 hours: Intake & Output 06/20/19 06/21/19 06/22/19 06/23/19 23:59 23:59 23:59 23:59 Intake Total 280 / 280 3010 / 3110 1170 / 1170 Balance 280 / 280 3010 / 3110 1170 / 1170 Weight 87.713 kg 88.025 kg 88.082 kg Narrative: Well-nourished white male in no apparent distress Pupils equal round reactive to light Head is normocephalic Neck is supple symmetric Normal respiratory effort Abdomen soft and normal to visual inspection Is alert and oriented x3 Internal Medicine - CN: Reslt - Labs CBC & Chem 7: 06/23/19 07:35 06/23/19 07:35 Labs: Short CBC 06/23/19 Range/Units 07:35 WBC 5.0 (4.8-10.8) K/mm3 Hgb 14.2 (14.1-18.0) g/dL Hct 43.9 (42.0-52.0) % Plt Count 310 (142-424) K/mm3 BMP 06/23/19 07:35 Sodium 138 Potassium 3.8 Chloride 103 Carbon Dioxide 31 BUN 4 L D Creatinine 0.93 Glucose 98 Calcium 8.5 Assessment and Plan (1) Diverticulitis Problem details: Discharged with PO abx and zofran Current visit: Yes Status: Acute Category: Medical Code(s): K57.92 - Diverticulitis of intestine, part unspecified, without perforation or abscess without bleeding - Assessment and plan all Dx Assessment and Plan for all problems:: Bladder wall thickening on recent CT scan. Patient has a long history of diverticulitis and I discussed that this inflammation could possibly invade the bladder wall. Patient is asymptomatic as far as his symptoms of colovesical fi stula. His urine does contain a small amount of mucus however. I would like to scope the patient sometime in the near future. He is being transferred to for his diverticulitis today or tomorrow and they may get urology involved there but if they do not work him up urologically I will see him back here in the office for cystoscopy. 2. Lower urinary tract symptoms recommend starting patient on tamsulosin 0.4 mg daily.
--- NOTE | 2019-06-24 08:52 | Progress Note ---
Internal Medicine - PN: Subj *Date: 06/24/19 *Time: 08:50 Interval history: awaiting transfer to - still with pain Exam Vital signs and Labs for Last 24 Hours: Temp Pulse Resp BP Pulse Ox 97.9 F 53 L 18 170/93 H 98 06/24/19 03:54 06/24/19 03:54 06/24/19 03:54 06/24/19 03:54 06/24/19 03:54 I & O for Last 24 hours: Intake & Output 06/21/19 06/22/19 06/23/19 06/24/19 11:59 11:59 11:59 11:59 Intake Total 1210 / 1210 2750 / 2750 1400 / 1400 Balance 1210 / 1210 2750 / 2750 1400 / 1400 Weight 185 lb 194 lb 1 oz 194 lb 3 oz 194 lb 4.341 oz - Constitutional no acute distress - *Routine HEENT Exam Head: Present: normocephalic Eye: Present: EOMI, PERRL ENT: Present: mucous membranes dry - *Routine Neck Exam Present: supple - *Routine Respiratory Exam Absent: respiratory distress - *Routine Cardiovascular Exam Present: RRR - *Routine Abdominal Exam Present: soft, tenderness - *Routine Extremities Exam Present: full ROM - *Routine Skin Exam Present: intact - *Routine Neurological Exam Present: alert, oriented X3, CN II-XII intact - Routine Psychiatric Exam Present: normal affect Assessment and Plan (1) Diverticulitis Problem details: Discharged with PO abx and zofran Current visit: Yes Status: Acute Category: Medical Code(s): K57.92 - Diverticulitis of intestine, part unspecified, without perforation or abscess without bleeding
--- NOTE | 2019-06-24 11:29 | Progress Note ---
Internal Medicine - PN: Subj *Date: 06/24/19 *Time: 11:29 Exam Vital signs and Labs for Last 24 Hours: Temp Pulse Resp BP Pulse Ox 98.1 F 57 L 20 132/73 95 06/24/19 08:00 06/24/19 08:00 06/24/19 08:00 06/24/19 08:00 06/24/19 08:00 I & O for Last 24 hours: Intake & Output 06/21/19 06/22/19 06/23/19 06/24/19 23:59 23:59 23:59 23:59 Intake Total 280 / 280 3010 / 3110 1969 700 / 700 Balance 280 / 280 3010 / 3110 1969 700 / 700 Weight 87.713 kg 88.025 kg 88.082 kg 88.12 kg Assessment and Plan (1) Diverticulitis Problem details: Discharged with PO abx and zofran Current visit: Yes Status: Acute Category: Medical Code(s): K57.92 - Diverticulitis of intestine, part unspecified, without perforation or abscess without bleeding The patient's infection will respond to the chosen ABx?: Yes Is the patient receiving the right drug, dose, and route?: Yes Could a more targeted ABx be ordered?: No (PATIENT AFEBRILE, NO GROWTH IN CULTURES)
--- NOTE | 2019-06-25 09:06 | Progress Note ---
Internal Medicine - PN: Subj *Date: 06/25/19 *Time: 09:04 Interval history: pt with abd pain but no fever awaiting [place] Exam Vital signs and Labs for Last 24 Hours: Temp Pulse Resp BP Pulse Ox 98.1 F 53 L 17 152/75 H 98 06/25/19 04:00 06/25/19 04:00 06/25/19 04:00 06/25/19 04:00 06/25/19 04:00 I & O for Last 24 hours: Intake & Output 06/22/19 06/23/19 06/24/19 06/25/19 11:59 11:59 11:59 11:59 Intake Total 1210 / 1210 2750 / 2750 2100 / 2100 2320 / 2320 Balance 1210 / 1210 2750 / 2750 2100 / 2100 2320 / 2320 Weight 194 lb 1 oz 194 lb 3 oz 194 lb 4.341 oz 194 lb 4.341 oz - Constitutional no acute distress - *Routine HEENT Exam Head: Present: normocephalic Eye: Present: EOMI, PERRL ENT: Present: mucous membranes moist - *Routine Neck Exam Absent: JVD - *Routine Respiratory Exam Absent: respiratory distress - *Routine Cardiovascular Exam Present: RRR - *Routine Abdominal Exam Present: soft - *Routine Extremities Exam Present: full ROM, calf tenderness - *Routine Skin Exam Present: intact - *Routine Neurological Exam Present: alert, CN II-XII intact - Routine Psychiatric Exam Present: normal affect Assessment and Plan (1) Diverticulitis Problem details: Discharged with PO abx and zofran Current visit: Yes Status: Acute Category: Medical Code(s): K57.92 - Diverticulitis of intestine, part unspecified, without perforation or abscess without bleeding
--- NOTE | 2019-06-26 08:20 | Progress Note ---
Internal Medicine - PN: Subj *Date: 06/26/19 *Time: 08:18 Interval history: doing ok - still with pain and awaiting [place] transfer Exam Vital signs and Labs for Last 24 Hours: Temp Pulse Resp BP Pulse Ox 98.0 F 62 18 141/80 H 96 06/26/19 04:00 06/26/19 04:00 06/26/19 04:00 06/26/19 04:00 06/26/19 04:00 I & O for Last 24 hours: Intake & Output 06/23/19 06/24/19 06/25/19 06/26/19 11:59 11:59 11:59 11:59 Intake Total 2750 / 2750 2100 / 2100 2900 / 2900 1230 / 1230 Balance 2750 / 2750 2099 / 2100 2900 / 2900 1230 / 1230 Weight 194 lb 3 oz 194 lb 4.341 oz 194 lb 4.341 oz 194 lb 4.341 oz - Constitutional no acute distress - *Routine HEENT Exam Head: Present: normocephalic Eye: Present: EOMI, PERRL ENT: Present: mucous membranes dry - *Routine Neck Exam Absent: JVD - *Routine Respiratory Exam Absent: respiratory distress - *Routine Cardiovascular Exam Present: RRR - *Routine Abdominal Exam Present: soft - *Routine Extremities Exam Absent: calf tenderness - *Routine Skin Exam Present: intact - *Routine Neurological Exam Present: alert, CN II-XII intact - Routine Psychiatric Exam Present: normal affect Assessment and Plan (1) Diverticulitis Problem details: Discharged with PO abx and zofran Current visit: Yes Status: Acute Category: Medical Code(s): K57.92 - Diverticulitis of intestine, part unspecified, without perforation or abscess without bleeding
== END 2019-06-26 23:55 | disposition short-term general hospital (02) | DRG 392 ==
LOC: ER 09:15 → 2ND 13:15
PROVIDERS: ADMIT Emergency Medicine; ATTEND Emergency Medicine
CPT/HCPCS: 36415; 74177; 80048; 80053; 81001; 85025; 85651; 86140; 96365; 96375; 96376; 99284; J2405; J2543; Q9967

== ENCOUNTER → 2021-08-20 12:03 | Outpatient (CLI) | payer MEDICAID, SELFPAY ==
--- NOTE | 2021-08-20 12:08 | XR_ITS ---
PROCEDURE: XR CLAVICLE LT CLINICAL INDICATION: pain COMPARISON: No exams were available for comparison FINDINGS: No fracture or dislocation. No lytic or blastic change. There is normal mineralization. Hypertrophic changes are present at the acromioclavicular joint. 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 Dictated by: Orlando Biswas MD 08/20/2021 17:00 Orlando Biswas MD in [place] 08/20/2021 17:00
== END ==
PROVIDERS: PCP Emergency Medicine; Visit Provider Family Medicine
DX: R52 Pain, unspecified (principal); I10 Essential (primary) hypertension
CPT/HCPCS: 73000

== ENCOUNTER 2022-05-05 12:05 | Emergency (ER) | payer MEDICAID, SELFPAY ==
[2022-05-05] VITALS (9 sets, daily range): BP systolic 153–193; BP diastolic 100–113; PULSE 62–70; RESP 17–18; TEMP 36.9; O2SAT 97–99; BMI 32.1
--- NOTE | 2022-05-05 12:23 | XR_ITS ---
FINAL REPORT CLINICAL HISTORY: trauma, fell out of barn loft 3 months ago FINDINGS: LEFT SHOULDER: 3 views of the right shoulder were obtained. There is no acute fracture or dislocation. There is moderate degenerative change of the acromioclavicular joint. There is mild degenerative change of the glenohumeral joint. There is no soft tissue abnormality. IMPRESSION: No acute fracture. Reviewed, Interpreted and Dictated by Gonzalo Guzman III, MD Transcribed by Jose Manuel Pabon Authenticated and . [facility]
--- NOTE | 2022-05-05 12:23 | CT_ITS ---
FINAL REPORT CLINICAL HISTORY: trauma- fell from barn loft FINDINGS: Axial CT images of the cervical spine were obtained without contrast. Sagittal and coronal reformatted images were also obtained. This study was performed with techniques to keep radiation doses as low as reasonably achievable (ALARA). Individualized dose reduction techniques using automated exposure control or adjustment of mA and/or kV according to the patient's size were employed. There is no evidence of fracture or dislocation. The bony alignment is normal. There are mild and moderate degenerative changes. There is multilevel osteophyte formation greatest at C5-C6 and C6-C7. There is no evidence of canal stenosis. There is a chronic calcification posterior to C5. No acute paraspinous soft tissue abnormality is seen. Limited images of the upper thorax are unremarkable. IMPRESSION: No fracture or acute bony abnormality identified. Reviewed, Interpreted and Dictated by Gonzalo Guzman III, MD Transcribed by Jose Manuel Pabon Authenticated and . [facility]
--- NOTE | 2022-05-05 12:47 | HMH.EDGENADL ---
ED Disposition Clinical Impression: Accidental fall Qualifiers: Encounter type: initial encounter Qualified Code(s): W19.XXXA - Unspecified fall, initial encounter Cervical strain Qualifiers: Encounter type: initial encounter Qualified Code(s): S16.1XXA - Strain of muscle, fascia and tendon at neck level, initial encounter Shoulder sprain Qualifiers: Encounter type: initial encounter Shoulder sprain type: unspecified sprain Laterality: unspecified laterality Qualified Code(s): S43.409A - Unspecified sprain of unspecified shoulder joint, initial encounter Disposition: Home, Self-Care Condition on Discharge: Good Instructions: DI for Acute Pain -- Child Prescriptions: Hydrocod/Acet 5/325 mg [[place] 5/325mg tablet] 1 tab PO Q6HP PRN #10 tab PRN Reason: Moderate Pain Transmission Status: [facility] to [facility] methocarbamoL [Methocarbamol 500mg Tablet] 1,000 mg PO TID 10 Days #60 tab Transmission Status: Pending to [facility] Referrals: Mitchel Call MD [Primary Care Provider] - - Critical Care Critical Care Time: No Attestation: On 05/05/22, the high probability of a clinically significant, sudden or life threatening deterioration of the following system(s) required my full and direct attention, intervention and personal management. The time I documented below is in addition to time spent performing reported procedures but includes the following listed in this critical care notation. Medical Decision Making - Medical Records Medical records reviewed: Yes: I reviewed the patient's medical records. - Sd Inquiry Pt receiving controlled substance: Yes Sd was queried for this patient: Yes Reference #:: [id number] Risks and benefits of using a controlled substance: were discussed with pt by me Vital Signs: 05/05/22 12:36 05/05/22 13:00 05/05/22 13:18 Temperature 98.4 F Temperature Source Oral Pulse Rate 70 67 Pulse Rate [Right Radial] 64 Respiratory Rate 17 Blood Pressure 173/108 H 176/110 H Blood Pressure [Right Arm] 185/110 H Blood Pressure Mean 144 147 Blood Pressure Mean [Right Arm] 135 Blood Pressure Source [Right Arm] Automatic Cuff Blood Pressure Position [Right Arm] Sitting 02 Sat by Pulse Oximetry 98 98 97 Oxygen Delivery Method Room Air Orders (Tests/Meds): ED MEDICATIONS Discontinued Medications Generic Name Dose Route Start Last Admin Trade Name Ema PRN Reason Stop Dose Admin Hydrocodone Bitart/Acetaminophen 1 tab 05/05/22 15:02 Hydrocodone 10mg/Apap 325mg Tab PO 05/05/22 15:03 ONCE ONE Morphine Sulfate 4 mg 05/05/22 12:27 05/05/22 12:58 Morphine 2mg/Ml Syringe IM 05/05/22 12:28 4 mg ONCE ONE Administration Ondansetron HCl 4 mg 05/05/22 12:28 05/05/22 12:58 Ondansetron 4mg Odt SL 05/05/22 12:29 4 mg ONCE ONE Administration - Radiology Data #1 Image(s): Shoulder Image Reviewed: Yes I reviewed the patient's radiology results, Yes I reviewed the patient's radiology image, Yes I have reviewed radiologist's interpretation Preliminary Findings: Normal/NAD - CT Data CT Scan: C-Spine, T-Spine, L-Spine Time Received: 15:[address] Reviewed: Yes: I have reviewed the patient's CT results, I have viewed the radiologist's interpretation Preliminary Findings: Normal/NAD, No Fracture Seen - Reevaluation(s) Time: 15:21 Reevaluation #1: On reevaluation, patient is feeling better. Is no evidence of fracture or dislocation. Patient will follow up with PCP. Given strict return precautions. Verbalized understanding. Medical Decision Narrative: 56-year-old male presented to the emergency department with some neck pain and left shoulder pain. Patient had a fall few months ago. There is no obvious deformity on examination at this time. Neuro exam is normal. Imaging will be obtained. Blood pressure likely related to pain. Patient provided analgesics. General Adult HPI - General Ch
--- NOTE | 2022-05-05 13:28 | CT_ITS ---
FINAL REPORT CLINICAL HISTORY: trauma- fell from a barn loft FINDINGS: Axial CT images of the thoracic spine were obtained without contrast. Sagittal and coronal reformatted images were also obtained. This study was performed with techniques to keep radiation doses as low as reasonably achievable (ALARA). Individualized dose reduction techniques using automated exposure control or adjustment of mA and/or kV according to the patient''s size were employed. There is no evidence of fracture. The vertebral alignment is normal. There is no evidence of significant canal stenosis. No paraspinous soft tissue abnormality is identified. IMPRESSION: No fracture or acute bony abnormality. Reviewed, Interpreted and Dictated by Gonzalo Guzman III, MD Transcribed by Jose Manuel Pabon Authenticated and [facility]
--- NOTE | 2022-05-05 13:28 | CT_ITS ---
FINAL REPORT CLINICAL HISTORY: trauma- fell from barn loft FINDINGS: Axial imaging of the lumbar spine was obtained without contrast. Sagittal and coronal reformatted images were also obtained and reviewed.This study was performed with techniques to keep radiation doses as low as reasonably achievable (ALARA). Individualized dose reduction techniques using automated exposure control or adjustment of mA and/or kV according to the patient's size were employed. There is no fracture. The vertebral alignment is normal. There are mild and moderate degenerative changes greatest at L5-S1. There is a right L5 pars defect. There is no evidence of significant central canal stenosis. IMPRESSION: No acute fracture. Reviewed, Interpreted and Dictated by Gonzalo Guzman III, MD Transcribed by Jose Manuel Pabon Authenticated and [facility]
--- NOTE | 2022-05-05 13:28 | XR_ITS ---
FINAL REPORT CLINICAL HISTORY: trauma, fell out of a barn loft 3 mths ago FINDINGS: RIGHT SHOULDER: 3 views of the right shoulder were obtained. There is no acute fracture or dislocation. There is moderate degenerative change of the acromioclavicular joint. There is mild degenerative change of the glenohumeral joint. There is no soft tissue abnormality. IMPRESSION: No acute fracture. Reviewed, Interpreted and Dictated by Gonzalo Guzman III, MD Transcribed by Jose Manuel Pabon Authenticated and . [facility]
== END 2022-05-05 15:37 | disposition home or self-care (01) ==
PROVIDERS: Emergency Provider Emergency Medicine; PCP Emergency Medicine
DX: S16.1XXA Strain of muscle, fascia and tendon at neck level, initial encounter (principal); M25.512 Pain in left shoulder; M54.2 Cervicalgia; R03.0 Elevated blood-pressure reading, without diagnosis of hypertension; I10 Essential (primary) hypertension; G43.909 Migraine, unspecified, not intractable, without status migrainosus; G40.909 Epilepsy, unspecified, not intractable, without status epilepticus; F17.210 Nicotine dependence, cigarettes, uncomplicated; Z88.8 Allergy status to other drugs, medicaments and biological substances; Z86.14 Personal history of Methicillin resistant Staphylococcus aureus infection; Z82.49 Family history of ischemic heart disease and other diseases of the circulatory system; Z80.9 Family history of malignant neoplasm, unspecified; W17.89XA Other fall from one level to another, initial encounter
CPT/HCPCS: 72125; 72128; 72131; 73030; 96372; 99285

== ENCOUNTER 2024-07-12 13:15 | Outpatient (CLI) | payer MEDICAID, SELFPAY ==
[2024-07-12 17:04] LABS: Basophils % 0.4 % (0.1-2.0); Eosinophils # 0.3 K/mm3 (0.0-0.4); Eosinophils % 3.6 % (0.1-12.0); Hematocrit 49.3 % (42.0-52.0); Hemoglobin 15.5 g/dL (14.1-18.0); Lymphocytes # 2.1 K/mm3 (0.7-4.5); Lymphocytes % 27.7 % (10-50); Mean Corpuscular HGB Conc 31.5 g/dL (31.8-35.4); Mean Corpuscular Hemoglobin 31.1 pg (27.0-31.2); Mean Corpuscular Volume 98.7 fl (80-94); Mean Platelet Volume 9.4 fl (7.4-10.4); Monocytes # 0.7 K/mm3 (0.1-1.0); Monocytes % 8.8 % (1.7-9.3); Neutrophils # 4.5 K/mm3 (1.8-7.8); Neutrophils % 59.4 % (37.0-80.0); Platelet Count 271 K/mm3 (142-424); Red Blood Count 4.99 M/mm3 (4.60-6.20); Red Cell Distribution Width 14.8 % (11.5-17.5); White Blood Count 7.6 K/mm3 (4.8-10.8)
[2024-07-12 21:57] LABS: Alanine Aminotransferase 41 U/L (12-78); Albumin Level 4.4 g/dl (3.5-5.0); Albumin/Globulin Ratio 1.3 (1.1-1.8); Alkaline Phosphatase 60 U/L (38-126); Anion Gap 12.8 mEq/L (5-15); Aspartate Amino Transferase 43 U/L (17-59); Bilirubin,Total 0.4 mg/dl (0.2-1.3); Blood Urea Nitrogen 17 mg/dl (9-20); Calcium 9.1 mg/dl (8.4-10.2); Carbon Dioxide 28 mmol/L (22.0-30.0); Chloride 104 mmol/L (98-107); Chol/HDL Ratio 3.2 (1-3.5); Cholesterol 162 mg/dl (140-200); Estimated Glomerular Filt Rate 87 ml/min (>60); GFR (African American) 106 ML/MIN (>60); Globulin 3.4 g/dL (1.3-3.2); Glucose 60 mg/dl (74-100); HDL Cholesterol 51 mg/dl (40-60); Potassium 4.8 mmoL/L (3.5-5.1); Sodium 140 mmol/L (136-145); Total Protein,Serum 7.8 g/dl (6.3-8.2); Triglycerides 172 mg/dl (30-150); VLDL Cholesterol 34 mg/dL (0-40)
[2024-07-12 22:09] LABS: Direct LDL Cholesterol 84.79 mg/dL (100-129)
[2024-07-12 22:27] LABS: Prostate Specific Ag Screen 0.5 ng/ml (0.0-4.0)
== END 2024-07-12 23:59 | disposition home or self-care (01) ==
LOC: LAB.DROPOF 07-13 09:27
PROVIDERS: PCP Internal Medicine; Visit Provider Internal Medicine
DX: I10 Essential (primary) hypertension (principal); E78.5 Hyperlipidemia, unspecified; N40.1 Benign prostatic hyperplasia with lower urinary tract symptoms; N13.8 Other obstructive and reflux uropathy; F19.11 Other psychoactive substance abuse, in remission; F10.11 Alcohol abuse, in remission; Z72.0 Tobacco use; Z87.19 Personal history of other diseases of the digestive system
CPT/HCPCS: 80053; 80061; 85025; G0103

== ENCOUNTER 2024-08-10 14:04 | Outpatient (CLI) | payer MEDICAID, SELFPAY ==
[2024-08-10 14:38] LABS: Anion Gap 8.5 mEq/L (5-15); Blood Urea Nitrogen 15 mg/dl (9-20); Calcium 9.4 mg/dl (8.4-10.2); Carbon Dioxide 27 mmol/L (22.0-30.0); Chloride 104 mmol/L (98-107); Estimated Glomerular Filt Rate 87 ml/min (>60); GFR (African American) 106 ML/MIN (>60); Glucose 91 mg/dl (74-100); Potassium 4.5 mmoL/L (3.5-5.1); Sodium 135 mmol/L (136-145)
== END 2024-08-10 23:59 | disposition home or self-care (01) ==
LOC: LAB.DROPOF 14:06
PROVIDERS: PCP Internal Medicine; Visit Provider Internal Medicine
DX: I10 Essential (primary) hypertension (principal); Z72.0 Tobacco use
CPT/HCPCS: 80048

== ENCOUNTER 2025-01-17 09:37 | Emergency (ER) | payer MEDICAID, SELFPAY ==
[2025-01-17 09:38] VITALS: BP 190/92; PULSE 76; RESP 18; TEMP 36.8; O2SAT 94; BMI 29.9
--- NOTE | 2025-01-17 10:42 | XR_ITS ---
FINAL REPORT CLINICAL HISTORY: productive cough, COPD FINDINGS: 2 views of the chest were obtained . The heart is normal in size. The mediastinum is within normal limits. The lungs are clear. There is no pneumothorax. Osseous structures are unremarkable. IMPRESSION: No acute cardiopulmonary process. Reviewed, Interpreted and Dictated by Marjorie Lovelace MD Transcribed by Melyssa Mcginnis Authenticated and [facility]
--- NOTE | 2025-01-17 10:50 | PC.NURSE ---
pt to rad
[2025-01-17] MEDS: DEXAMETHASONE 4MG TABLET 10 MG PO (11:06)
[2025-01-17] MEDS: IPRATROPIUM/ALBUTEROL 3 ML NEB 9 ML IH (11:06)
--- NOTE | 2025-01-17 11:26 | ED_ITS ---
Discharge Plan Disposition Patient Disposition: Home, Self-Care Prescriptions Prescriptions: New doxycycline hyclate 100 mg capsule 100 mg PO BID 5 Days Qty: 10 0RF nicotine 14 mg/24 hr patch 24 hour 1 patch transdermal DAILY Qty: 28 0RF prednisone 20 mg tablet 40 mg PO DAILY 5 Days Qty: 10 0RF No Action lisinopril-hydrochlorothiazide 10-12.5 mg tablet 1 tab PO DAILY Qty: 30 2RF Referrals Follow up/Referrals: Gina Crockett [Primary Care Provider] - See instructions Mariajose Anderson MD [Physician] - See instructions Activity Restrictions/Add. Instructions Additional Instructions/Restrictions: Call your family doctor to establish care for this visit to the emergency department and schedule follow-up within 48 hours to ensure improvement. If you have any worsening of your condition or any other concerning signs or symptoms, return to the emergency department or your primary care doctor for further evaluation. Prednisone each morning with plenty of food and water after waking up, do not take before bed. Doxycycline twice daily for [address] Anderson for further pulmonology, lung, care. Clinical Impressions Clinical Impression: Acute exacerbation of chronic obstructive pulmonary disease Print Language Print Language: Turkish Discharge ED Provider: Gallito Singer General Adult HPI General Chief complaint: Upper Respiratory Infection Stated complaint: cough ba fever Time Seen by Provider: 01/17/25 10:14 Mode of Arrival: Ambulatory Source of Information: Patient Description of Symptoms (Recalled from ER Triage Doc. by RN): cough, runny nose, body aches, nausea History of Present Illness HPI narrative: Please note that above description of symptoms, in this electronic medical record under categorization of recalled from ER triage doctor by RN are reflective of an initial nursing assessment, however, is not reflective of my full history and physical exam that was personally taken and clarified. Consequentially, this preceding description of symptoms, which may include the patient's categorized chief complaint in the EMR, do not reflect my personal clinical impression, and the ultimate description of history of present illness and patient stated complaints should be deferred to this section of the note. Unless stated otherwise or congruent with this section of the note, additional signs, symptoms, or incongruence should be interpreted as inaccurate with my clinical impression. Related Data Previous Rx's ?Medication ?Instructions ?Recorded lisinopril 10 1 tab PO DAILY #30 tabs 07/12/24 mg-hydrochlorothiazide 12.5 mg tablet doxycycline hyclate 100 mg capsule 100 mg PO BID 5 days #10 caps 01/17/25 nicotine 14 mg/24 hr daily 1 patch transdermal DAILY #28 ea 01/17/25 transdermal patch prednisone 20 mg tablet 40 mg (2 x 20 mg) PO DAILY 5 days 01/17/25 #10 tabs Allergies Allergy/AdvReac Type Severity Reaction Status Date / Time promethazine (From [facility]) AdvReac Mild NA-HALLUCIN Verified 08/10/24 09:45 [facility] Disclaimer: The information contained in this section may have been updated after the patient was seen, as this information can be updated by other users. Social History Smoking Status: Current every day smoker tobacco type: cigarettes packs per day: 1 second hand exposure: Yes alcohol intake: current alcohol intake frequency: holidays/special occasions only substance use type: marijuana current occupational status: unemployed Travel in the last 8 weeks: None household members: significant other housing: house current occupational exposures/hazards: No caffeine: Yes Have you lived/traveled outside [place] in past 30 days?: No Contact w/someone who lives/traveled outside [place] past 30 days?: No Exposure to someone with infectious disease in past 14 days?: No Do you have a fever (greater than 100.4 F or 38 C)?: No Have you tested positive for COVID-19: No Exposed to someone with COVID-19 in past 14 days?: No Do you have a sore throat?: Yes Do you have a cough?: No Do you have any weakness?: Yes Do you have any diarrhea?: No Are you experiencing any unusual bleeding?: No Do you have any muscle aches/pain?: Yes Do you have any abdominal pain?: No Are you experiencing loss of taste or smell?: No Other Medical History Have you received the Flu Vaccine for this season: No Have you received the Pneumonia Vaccine: No ROS Obtained: Yes All systems reviewed & no additional complaints except as documented Physical Exam General General appearance: alert Head Head exam: atraumatic and normocephalic Eye Eye exam: Present normal appearance, PERRL and EOMI Neck Neck exam: Present normal inspection, full ROM and trachea midline Respiratory Respiratory exam: Present wheezes (Diffuse expiratory wheezes, inspiratory wheezes heard anteriorly); Absent respiratory distress, stridor, accessory muscle use or prolonged expiratory phase Cardiovascular Cardiovascular exam: Present regular rate, normal rhythm and other (Pulses equal symmetric in upper and lower extremities) Abdominal Exam Abdominal exam: Present soft; Absent distention, tenderness or pulsatile mass Extremities Exam Extremities exam: Absent edema Neurological Exam Neurological exam: Present alert, oriented X3 and CN II-XII intact; Absent motor sensory deficit Skin Skin exam: Present warm and dry; Absent diaphoresis or erythema Medical Decision Making Medical Records Medical records reviewed: Yes I reviewed the patient's medical records. Screening: Per USPSTF and CDC recommendations, given the prevalence of disease in our region, it is our hospital?s policy to screen for HIV and viral Hepatitis for all patients aged 18 and over and those with ongoing risk factors. Sd Inquiry Pt receiving controlled substance: No Sd was queried for this patient: No Vital Signs: 01/17/25 09:38 Temperature 98.2 F Temperature Source Oral Pulse Rate [Right Radial] 76 Respiratory Rate 18 Blood Pressure [Right Arm] 190/92 H Blood Pressure Mean [Right Arm] 124 02 Sat by Pulse Oximetry 94 L Oxygen Delivery Method Room Air Orders (Tests/Meds): ED MEDICATIONS Discontinued Medications Generic Name Dose Route Start Last Admin Trade Name Freq PRN Reason Stop Dose Admin Albuterol/Ipratropium 9 ml 01/17/25 10:42 01/17/25 11:06 Ipratropium/Albuterol 3 Ml Neb IH 01/17/25 10:43 9 ml ONCE ONE Administration Dexamethasone 10 mg 01/17/25 10:42 01/17/25 11:06 Dexamethasone 4mg Tablet PO 01/17/25 10:43 10 mg ONCE ONE Administration ORDERS Category Date Time Status CXR 2 view (NOT portable) [XR chest 2V] Stat Exams 01/17/25 10:42 Completed Medical Decision Narrative: This is a 59-year-old male history of hypertension, COPD still smoking 1 pack/day presenting with shortness of breath and cough. He states that this has been going on for 3 to 4 days. States that he has also felt febrile, but no objective temperatures have been measured. Does not usually cough, now has a new cough and cough is productive of thick white to sometimes green sputum. No shortness of breath or chest pain. History was obtained via conversation with patient. On arrival, patient hemodynamically stable, alert, oriented x4, appropriate, GCS 15, moving all extremities spontaneously, pupils equal and reactive to light. Full physical exam performed and significant for very clinically well-appearing patient who is in no acute distress. Speaking full sentences, nontachypneic, nontachycardic. Lungs with diffuse end expiratory wheezes with inspiratory wheezes heard anteriorly in the right lower lung moses. No lower extremity edema. Differential includes COPD exacerbation, bronchitis, pneumonia, among others. Patient placed on continuous cardiac monitoring and continuous pulse ox with initial blood pressure 190/92, heart rate 76, saturation 94% on room air. Patient was given DuoNebs and Decadron, doxycycline for symptomatic management and correction of underlying abnormalities. Workup independently interpreted and significant for no acute intrathoracic process on chest x-ray. Hematologic workup was considered, but patient very clinically well. I had smoking cessation talk with patient for approximately 10 minutes he is agreeable, so nicotine patches will be sent to the pharmacy along with steroids and doxycycline. Given patient presentation, workup, history, this most likely represents mild COPD exacerbation. Because patient at baseline without signs or symptoms of clinical decompensation, deemed appropriate for discharge. Results were relayed to patient who voiced understanding and were agreeable to ou tpatient management and follow up. I discussed my clinical impression with patient and answered all questions. At this time, the evidence for any other entities in the differential is insufficient to warrant any further testing or ED observation. This was explained as well. Advisory was given that persistent or worsening symptoms require further evaluation. I confirmed the understanding of this discussion. Trimming Caser disclaimer Much of this encounter note is an electronic geotechnical operating engineer spoken language to printed text. Electronic geotechnical operating engineer of the spoken language may permit errors. Although I have reviewed the note, some errors may still exist. Critical Care Critical Care Time Critical Care Time: No
[2025-01-17] MEDS: DOXYCYCLINE HYCL 100 MG TABLET PO (11:29)
[2025-01-17 11:41] VITALS: BP 178/100; PULSE 71; RESP 22; TEMP 36.7; O2SAT 95
== END 2025-01-17 10:41 | disposition home or self-care (01) ==
PROVIDERS: Emergency Provider Emergency Medicine; PCP Family Medicine
DX: J44.1 Chronic obstructive pulmonary disease with (acute) exacerbation (principal); R05.9 Cough, unspecified; R11.0 Nausea; M79.10 Myalgia, unspecified site; R09.81 Nasal congestion; F17.210 Nicotine dependence, cigarettes, uncomplicated
CPT/HCPCS: 71046; 99283; J7620; J8540

== ENCOUNTER 2025-02-14 09:59 | Emergency (ER) | payer MEDICAID, SELFPAY ==
[2025-02-14 10:09] VITALS: BP 197/129; PULSE 85; RESP 18; TEMP 36.6; O2SAT 97; BMI 32.1
--- NOTE | 2025-02-14 10:12 | HMH.EDGENADL ---
Discharge Plan Disposition Patient Disposition: Home, Self-Care Prescriptions Prescriptions: New amoxicillin-pot clavulanate 875-125 mg tablet 1 tab PO BID Qty: 20 0RF No Action lisinopril-hydrochlorothiazide 10-12.5 mg tablet 1 tab PO DAILY Qty: 30 2RF doxycycline hyclate 100 mg capsule 100 mg PO BID 5 Days Qty: 10 0RF nicotine 14 mg/24 hr patch 24 hour 1 patch transdermal DAILY Qty: 28 0RF prednisone 20 mg tablet 40 mg PO DAILY 5 Days Qty: 10 0RF Referrals Follow up/Referrals: Gina Crockett [Primary Care Provider] - See instructions Activity Restrictions/Add. Instructions Additional Instructions/Restrictions: Today you were evaluated in the emergency department for a dog bite on your left hand. Please take the oral antibiotics as directed. Please leave the area open to air, keep it clean and dry. Wash with mild soap and water. Please return to the ED if any worsening of your condition as we discussed. Please follow-up with your PCP within 7 days. Please return to the ED for worsening of condition. Clinical Impressions Clinical Impression: Hypertension Dog bite Qualifiers: Encounter type: initial encounter Qualified Code(s): W54.0XXA - Bitten by dog, initial encounter Stand Alone Forms Stand Alone Forms: Work/School Release Instructions Patient Instructions: Animal Bites, DI for Dog Bite Print Language Print Language: Romanian Discharge ED Provider: Gallito Singer General Adult HPI <Ely Lugo APRN - Last Filed: 02/14/25 10:27> General Chief complaint: Animal Bite Stated complaint: AO 02/10/25, dog bite to left hand Time Seen by Provider: 02/14/25 10:07 Mode of Arrival: Ambulatory History of Present Illness HPI narrative: Patient is a 59-year-old male PMHx HTN and tobacco use who presents to the ED for a dog bite on his left hand that occurred on 02/10/2025. Patient has not been evaluated for this dog bite yet. He states that he was bitten by his own husky, reports that his shots are up-to-date, specifically rabies is up-to-date. Related Data Previous Rx's ?Medication ?Instructions ?Recorded lisinopril 10 1 tab PO DAILY #30 tabs 07/12/24 mg-hydrochlorothiazide 12.5 mg tablet doxycycline hyclate 100 mg capsule 100 mg PO BID 5 days #10 caps 01/17/25 nicotine 14 mg/24 hr daily 1 patch transdermal DAILY #28 ea 01/17/25 transdermal patch prednisone 20 mg tablet 40 mg (2 x 20 mg) PO DAILY 5 days 01/17/25 #10 tabs amoxicillin 875 mg-potassium 1 tab PO BID #20 tabs 02/14/25 clavulanate 125 mg tablet Allergies Allergy/AdvReac Type Severity Reaction Status Date / Time promethazine (From [facility]ENERGAN) AdvReac Mild NA-HALLUCIN Verified 08/10/24 09:45 [facility] <Ely Lugo APRN - Last Filed: 02/14/25 10:27> [facility] Disclaimer: The information contained in this section may have been updated after the patient was seen, as this information can be updated by other users. Social History Smoking Status: Current every day smoker tobacco type: cigarettes packs per day: 1 second hand exposure: Yes alcohol intake: current alcohol intake frequency: holidays/special occasions only substance use type: marijuana current occupational status: unemployed Travel in the last 8 weeks: None household members: significant other housing: house current occupational exposures/hazards: No caffeine: Yes Have you lived/traveled outside [place] in past 30 days?: No Contact w/someone who lives/traveled outside [place] past 30 days?: No Exposure to someone with infectious disease in past 14 days?: No Do you have a fever (greater than 100.4 F or 38 C)?: No Have you tested positive for COVID-19: No Exposed to someone with COVID-19 in past 14 days?: No Do you have a sore throat?: No Do you have a cough?: No Do you have any weakness?: No Do you have any diarrhea?: No Are you experiencing any unusual bleeding?: No Do you have any muscle aches/pain?: No Do you have any abdominal pain?: No Are you experiencing loss of taste or smell?: No Other Medical History Have you received the Flu Vaccine for this season: No Have you received the Pneumonia Vaccine: No <Ely Lugo APRN - Last Filed: 02/14/25 10:27> ROS Obtained: Yes Systems reviewed as appropriate & no additional complaints except as documented Physical Exam <Ely Lugo APRN - Last Filed: 02/14/25 10:27> General General appearance: alert and in no apparent distress Head Head exam: atraumatic and normocephalic Eye Eye exam: Present normal appearance and PERRL ENT ENT exam: Present normal exam Neck Neck exam: Present normal inspection Chest Chest inspection: Present normal inspection and symmetric chest wall rise; Absent tenderness Respiratory Respiratory exam: Present normal lung sounds bilaterally Cardiovascular Cardiovascular exam: Present regular rate Abdominal Exam Abdominal exam: Present soft and normal bowel sounds; Absent tenderness Extremities Exam Extremities exam: Present normal inspection and full ROM Back Exam Back exam: Present normal inspection and full ROM Neurological Exam Neurological exam: Present alert and oriented X3 Psychiatric Psychiatric exam: Present normal affect and normal mood Skin Skin exam: Present warm, dry and other (multiple healing lacerations on his left hand, 1 cm open laceration to left thenar area, no drainage noted, no surrounding erythema.) Medical Decision Making <Ely Lugo APRN - Last Filed: 02/14/25 10:27> Medical Records Screening: Per USPSTF and CDC recommendations, given the prevalence of disease in our region, it is our hospital?s policy to screen for HIV and viral Hepatitis for all patients aged 18 and over and those with ongoing risk factors. Sd Inquiry Pt receiving controlled substance: No Sd was queried for this patient: No Vital Signs: 02/14/25 10:09 02/14/25 10:45 Temperature 97.8 F 97.8 F Temperature Source Oral Oral Pulse Rate 89 Pulse Rate [Right] 85 Respiratory Rate 18 16 Blood Pressure 179/113 H Blood Pressure [Right Arm] 197/129 H Blood Pressure Mean [Right Arm] 151 Blood Pressure Source Automatic Cuff Blood Pressure Source [Right Arm] Automatic Cuff Blood Pressure Position Sitting Blood Pressure Position [Right Arm] Supine 02 Sat by Pulse Oximetry 97 Oxygen Delivery Method Room Air Room Air Orders (Tests/Meds): ED MEDICATIONS Discontinued Medications Generic Name Dose Route Start Last Admin Trade Name Freq PRN Reason Stop Dose Admin Amoxicillin/Clavulanate Potassium 1 each 02/14/25 10:15 02/14/25 10:24 Amoxicillin/Clavulanate Potassium 875/125mg Tablet PO 02/14/25 10:16 1 each ONCE ONE Administration Tetanus/Diphtheria Toxoids 0.5 ml 02/14/25 10:20 02/14/25 10:24 Tetanus-Diphth Toxoid, Adult 0.5ml Syr IM 02/14/25 10:21 0.5 ml .ONCE ONE Administration Medical Decision Narrative: In summary, patient is a 59-year-old male PMHx HTN and tobacco use who presents to the ED for a dog bite on his left hand that occurred on 02/10/2025. Patient has not been evaluated for this dog bite yet. He states that he was bitten by his own husky, reports that his shots are up-to-date, specifically rabies is up-to-date. Patient states he was reaching into his dog's food bowl when he was bitten on the left hand only. Patient states that immediately after the event he irrigated his left hand thoroughly. He has been putting peroxide, Neosporin and wrapping his left hand since the event. He denies any additional complaints. Will update tetanus. Patient denies fever, chills, body aches, drainage, erythema around wound, decreased range of motion of left hand or left wrist. On initial evaluation patient is alert, oriented and cooperative. He is hypertensive at this time. He has multiple healing lacerations on his left hand, 1 cm open laceration to left thenar area, no drainage noted, no surrounding erythema. Discussed with patient that he will need an x-ray of the left hand and oral antibiotics. Patient refuses x-ray of the left hand. He was given 1 dose of Augmentin in the ED. I had a discussion with patient about his high blood pressure, need for tetanus vaccination. Advised that he will need to monitor the area and return to the ED if any worsening of condition. Discussed the importance of taking his oral antibiotics as directed. We discussed not using peroxide or wrapping the hand any longer. Advised him to leave the area open to air, clean with mild soap and water. Follow-up with PCP within 7 days. Patient was able to verbalize an understanding of discharge instructions and return precautions to the ED. Advised to monitor blood pressure closely. <Gallito Singer MD - Last Filed: 02/14/25 13:52> Vital Signs: 02/14/25 10:09 02/14/25 10:45 Temperature 97.8 F 97.8 F Temperature Source Oral Oral Pulse Rate 89 Pulse Rate [Right] 85 Respiratory Rate 18 16 Blood Pressure 179/113 H Blood Pressure [Right Arm] 197/129 H Blood Pressure Mean [Right Arm] 151 Blood Pressure Source Automatic Cuff Blood Pressure Source [Right Arm] Automatic Cuff Blood Pressure Position Sitting Blood Pressure Position [Right Arm] Supine 02 Sat by Pulse Oximetry 97 Oxygen Delivery Method Room Air Room Air Orders (Tests/Meds): ED MEDICATIONS Discontinued Medications Generic Name Dose Route Start Last Admin Trade Name Freq PRN Reason Stop Dose Admin Amoxicillin/Clavulanate Potassium 1 each 02/14/25 10:15 02/14/25 10:24 Amoxicillin/Clavulanate Potassium 875/125mg Tablet PO 02/14/25 10:16 1 each ONCE ONE Administration Tetanus/Diphtheria Toxoids 0.5 ml 02/14/25 10:20 02/14/25 10:24 Tetanus-Diphth Toxoid, Adult 0.5ml Syr IM 02/14/25 10:21 0.5 ml .ONCE ONE Administration Medical Decision Narrative: In summary, patient is a 59-year-old male PMHx HTN and tobacco use who presents to the ED for a dog bite on his left hand that occurred on 02/10/2025. Patient has not been evaluated for this dog bite yet. He states that he was bitten by his own husky, reports that his shots are up-to-date, specifically rabies is up-to-date. Patient states he was reaching into his dog's food bowl when he was bitten on the left hand only. Patient states that immediately after the event he irrigated his left hand thoroughly. He has been putting peroxide, Neosporin and wrapping his left hand since the event. He denies any additional complaints. Will update tetanus. Patient denies fever, chills, body aches, drainage, erythema around wound, decreased range of motion of left hand or left wrist. On initial evaluation patient is alert, oriented and cooperative. He is hypertensive at this time. He has multiple healing lacerations on his left hand, 1 cm open laceration to left thenar area, no drainage noted, no surrounding erythema. Discussed with patient that he will need an x-ray of the left hand and oral antibiotics. Patient refuses x-ray of the left hand. He was given 1 dose of Augmentin in the ED. I had a discussion with patient about his high blood pressure, need for tetanus vaccination. Advised that he will need to monitor the area and return to the ED if any worsening of condition. Discussed the importance of taking his oral antibiotics as directed. We discussed not using peroxide or wrapping the hand any longer. Advised him to leave the area open to air, clean with mild soap and water. Follow-up with PCP within 7 days. Patient was able to verbalize an understanding of discharge instructions and return precautions to the ED. Advised to monitor blood pressure closely. \ I was consulted by the VALENTINE, and we discussed the complexity of the problems being addressed. I approved the treatment and management plan for this patient's care in the Emergency Department, thus performing a substantive portion of the medical decision making. Gallito Singer MD Critical Care <Ely Lugo APRN - Last Filed: 02/14/25 10:27> Critical Care Time Critical Care Time: No
--- NOTE | 2025-02-14 10:20 | HMH.ITSTN ---
Went to patients room to perform left hand x-ray and patient stated that he did not want to have the x-ray exam. He stated that he could move his hand just fine and didn't have any broken bones . Relayed this information to MD Singer.
[2025-02-14] MEDS: AMOXICILLIN/CLAVULANATE POTASSIUM 875/125MG TABLET 1 EACH PO (10:24)
[2025-02-14] MEDS: TETANUS-DIPHTH TOXOID, ADULT 0.5ML SYR 0.5 ML IM (10:24)
[2025-02-14 10:45] VITALS: BP 179/113; PULSE 89; RESP 16; TEMP 36.6; O2SAT 95
== END 2025-02-14 10:46 | disposition home or self-care (01) ==
PROVIDERS: Emergency Provider Emergency Medicine; PCP Family Medicine
DX: S61.452A Open bite of left hand, initial encounter (principal); W54.0XXA Bitten by dog, initial encounter
CPT/HCPCS: 90472; 90714; 99283